=== PATIENT | male | born 1960 | race Caucasian/White ===

== ENCOUNTER 2021-01-08 11:10 | Inpatient (IN) | payer MEDICAID, SELFPAY ==
[~2021-01-08] VITALS: Ht 177.8 cm; Wt 95.3 kg
--- NOTE | 2021-01-08 11:10 | NUR ---
Patient BIBA BLS, transferred to bed 9. RN evaluating the patient at bedside.
[2021-01-08 11:11] VITALS: BP 131/80
--- NOTE | 2021-01-08 11:11 | NUR ---
60Y M BIBA c/c alchohol intoxication. Pt was found by ambulance laying on the ground. Pt reports that he passed out. He admits that he fell and hit his head but did not LOC. Pt reports neuropathy in his legs but is unsure of diabetes dx. Pt has scrapes on bilateral hands and fingers. Poor feet hygiene and sore on feet. Pt c/o epigastric pain 03/10. PMH: denies RX: Denies NKA
--- NOTE | 2021-01-08 11:12 | NUR ---
ERMD evaluating pt at bedside.
[2021-01-08] MEDS ORDERED: DICYCLOMINE HCL LIQUID 20 MG, ALUMINUM HYD/MAG/SIMETHICONE 30 ML, LIDOCAINE VISCOUS 2% ... PO ONE ×3 (11:20)
--- NOTE | 2021-01-08 11:20 | NUR ---
Student RN providing foot bath.
[2021-01-08] MEDS ORDERED: LIDOCAINE VISCOUS 2% 20 ML UDC ONE (11:23)
[2021-01-08] MEDS ORDERED: DICYCLOMINE HCL LIQUID 10 MG/5 ML UDC ONE (11:23)
[2021-01-08] MEDS ORDERED: ALUMINUM HYD/MAG/SIMETHICONE 30 ML UDC ONE (11:23)
--- NOTE | 2021-01-08 11:30 | NUR ---
EKG AT BEDSIDE.
[2021-01-08] MEDS ORDERED: ALBUTEROL 0.083% 2.5 MG/3 ML NEBU INH ONE (13:50)
--- NOTE | 2021-01-08 13:53 | NUR ---
ATTEMPTED TO ROAD TEST PT, PT ALMOST FELL DURING AMBULATION. ERMD MADE AWARE, PT TAKEN BACK TP BED 9. SANDWICH AND JUICE PROVIDED.
--- NOTE | 2021-01-08 13:57 | NUR ---
LAB AT BEDSIDE
--- NOTE | 2021-01-08 13:58 | NUR ---
X-Ray at bedside.
--- NOTE | 2021-01-08 14:06 | NUR ---
RT CALLED FOR INH ELECTRIC SHIPYARD OPERATOR
--- NOTE | 2021-01-08 14:14 | NUR ---
RT AT BEDSIDE
[2021-01-08 14:18] LABS: BASOPHILS # (AUTO) 0.1 K/uL (0.00-0.22); BASOPHILS % (AUTO) 1.4 % (0.0-2.0); HEMATOCRIT 39.8 % (36-52); HEMOGLOBIN 14.2 g/dL (12.0-18.0); LYMPHOCYTES # (AUTO) 1.8 K/uL (2.0-11.5); LYMPHOCYTES % (AUTO) 21.3 % (20.5-51.1); MEAN CORPUSCULAR HEMOGLOBIN 35 pg (27-31); MEAN CORPUSCULAR HGB CONC 36 g/dL (33-37); MEAN CORPUSCULAR VOLUME 97.1 fL (80-94); MONOCYTES # (AUTO) 0.8 K/uL (0.8-1.0); MONOCYTES % (AUTO) 9.5 % (1.7-9.3); NEUTROPHILS # (AUTO) 5.8 K/uL (1.8-7.7); NEUTROPHILS % (AUTO) 67.8 % (42.2-75.2); PLATELET COUNT (AUTO) 203 K/uL (140-450); RED CELL DISTRIBUTION WIDTH 18.6 % (11.6-13.7); WHITE BLOOD COUNT (AUTO) 8.5 K/uL (4.8-10.8)
[2021-01-08 14:33] LABS: ALBUMIN 3.1 g/dL (3.4-5.0); ANION GAP 10.5 (8-16); CARBON DIOXIDE 36.4 mmol/L (21-32); CREATININE 1.1 mg/dL (0.6-1.3); TOTAL BILIRUBIN 1.3 mg/dL (0.0-1.0)
[2021-01-08 14:35] LABS: POTASSIUM 1.9 mmol/L (3.5-5.1)
[2021-01-08] MEDS ORDERED: NACL 0.9% 1,000 ML IV ONE ×2 (14:35→14:45)
[2021-01-08] MEDS ORDERED: POTASSIUM CHL 40 MEQ/ D5-1/2NS 1,000 ML IV ONE (14:35)
[2021-01-08] MEDS ORDERED: FOLIC ACID 1 MG TAB PO ONE (14:40)
[2021-01-08] MEDS ORDERED: POTASSIUM CHLORIDE 10 MEQ TABER PO ONE ×2 (14:40→22:30)
[2021-01-08] MEDS ORDERED: MORPHINE SULFATE 2 MG/ML SYR IVP PRN (14:45)
[2021-01-08] MEDS ORDERED: KCL 20 MEQ/WATER INJ PREMIX 200 ML IV ONE (14:45)
[2021-01-08] MEDS ORDERED: MAG SULF 2000 MG/WATER PREMIX 50 ML IV PRN (14:45)
[2021-01-08] MEDS ORDERED: DOCUSATE SODIUM 100 MG GELCAP PO PRN (14:45)
[2021-01-08] MEDS ORDERED: SODIUM PHOS / POTASSIUM PHOS 1 PKT PDR PO PRN (14:45)
[2021-01-08] MEDS: FOLIC ACID 1 MG TAB PO SCH (14:50)
[2021-01-08] MEDS: NACL 0.9% 1,000 ML IV SCH ×2 (15:08→15:24)
--- NOTE | 2021-01-08 15:30 | NUR ---
PT ASKING FOR SOMETHING FOR HIS "SHAKES" FROM ALOCHOL WITHDRAWL. PRN GIVEN
[2021-01-08] MEDS: THIAMINE 100 MG TAB PO SCH (15:37)
[2021-01-08] MEDS: ONDANSETRON 4 MG/2 ML VIAL IM/IVP PRN ×2 (15:38→19:26)
[2021-01-08] MEDS: LORazepam 2 MG/ML VIAL IM/IVP PRN ×2 (15:38→22:05)
[2021-01-08 15:50] LABS: MAGNESIUM 1.7 mg/dL (1.8-2.4); PHOSPHORUS 2.4 mg/dL (2.5-4.9)
--- NOTE | 2021-01-08 16:10 | NUR ---
REPORT GIVEN TO KELLY RAMSEY VIA PHONE.
--- NOTE | 2021-01-08 16:20 | NUR ---
Patient will be admitted to care of [facility]. Admited to Tele. Will go to room 111A. Belongings list completed. Report to KELLY Lorenz.
[2021-01-08 16:25] VITALS: BP 131/80
--- NOTE | 2021-01-08 16:25 | NUR ---
RECEIVED PATIENT FROM ED NURSE KELLY ABDI. PATIENT BIT DROWSY BUT ALERT AND ORIENTED X3. RESP EVEN AND UNLABORED ON ROOM AIR. DENIED OF PAIN AT THIS TIME. DX ALCOHOL INTOXICATION. PERSONAL CARE PROVIDED BY CNAS. PATIENT ABLE TO FOLLOW COMMANDS AND MAKE NEEDS KNOWN. RAC 20G INFUSING KRIDER. BILATERAL HANDS SWELLING WITH REDNESS NOTED. PLAN OF CARE DISCUSSED, PATIENT VERBALIZED UNDERSTANDING. CALL LIGHT WITHIN REACH. WILL CONTINUE TO MONITOR.
[2021-01-08] MEDS: MULTIVITAMIN/MINERALS 1 TAB PO SCH (17:32)
[2021-01-08] MEDS: chlordiazePOXIDE 25 MG CAP PO SCH (17:33)
--- NOTE | 2021-01-08 17:53 | NUR ---
IV ACCESS TO RAC DISLODGED DURING PERSONAL CARE. WILL MAKE ATTEMPT TO INSERT ANOTHER. Addendum: 01/08/21 at 1927 by Silvia Mcmillan RN IV ACCESS INTACT PER ED NURSE. LUNGS CLEAR, BOWEL SOUNDS PRESENT. MRSA COLLECTED AND SENT TO LAB.
--- NOTE | 2021-01-08 19:15 | NUR ---
RECEIVED BEDSIDE REPORT FROM DAY SHIFT NURSE FOR CONTINUITY OF CARE. PT IS AWAKE AND ALERT, SPEAKING APPROPRIATELY. ON RA WITH BREATHING UNLABORED. PT IS AMBULATORY WITH ASSISTANCE. ST ON TELE MONITORING. SKIN IS WARM AND MOIST. WOUNDS ON THE HANDS BILATERALLY AND RIGHT THIGH. IV IS IN THE RIGTH AC 20 GAUGE RUNNING POTASSIUM AND FLUIDS. PT IS STABLE AT THIS TIME. PLAN OF CARE DISCUSSED. SEIZURE PRECAUTIONS AND FALL PRECAUTIONS IN PLACE.
--- NOTE | 2021-01-08 19:15 | NUR ---
ENDORSED PATIENT TO NIGHT NURSE. PATIENT IN STABLE CONDITION.
--- NOTE | 2021-01-08 19:26 | NUR ---
ZOFRAN WAS GIVEN FOR NAUSEA AND VOMITING. PT IS SPITTING UP CLEAR SECRETIONS AND STATES HE IS FEELING SICK. PT IS ALSO SWEATING AND TEMP WAS TAKEN, IT WAS 99.8 F. COOLING MEASURES WERE PLACED. WILL CONTINUE TO MONITOR.
[2021-01-08 20:00] VITALS: BP 127/68
[2021-01-08 20:39] LABS: ANION GAP 6.1 (8-16); CREATININE 1.2 mg/dL (0.6-1.3)
[2021-01-08 20:45] LABS: POTASSIUM 2.1 mmol/L (3.5-5.1)
--- NOTE | 2021-01-08 21:26 | NUR ---
DR. ALEGRIA WAS NOTIFIED FOR POTASSIUM LEVEL OF 2.1, NA 129, AND CO2 40. DR. ALEGRIA ORDERED 80 MEQ KDUR PO. CALLED PHARMACY AND THEY ASKED ME TO CLARIFY THE HIGH DOSE WITH THE DOCTOR. INFORMED DR. ALEGRIA THAT THE PT RECEIVED KDUR 40 MEQ AT 1458 PO AND KRIDER 40 MEQ IV AT 1523. [address]. ALEGRIA CHANGED THE ORDER TO 40 MEQ KDUR AND SAID THEY WILL RECHECK THE LAB IN THE AM.
[2021-01-08] MEDS: CLINDAMYCIN 600 MG in DEXTROSE 5% 50 ML IV SCH (22:05)
--- NOTE | 2021-01-08 22:34 | NUR ---
PT WAS GIVEN KDUR [address] PO [address] ALEGRIA. POTASSIUM LEVEL IS 2.1. MEDICATION EDUCATION WAS PROVIDED AND PT VERBALIZED UNDERSTANDING.
--- NOTE | 2021-01-08 23:00 | NUR ---
PT STILL HAS NOT VOIDED IN DIAPER OR URINAL. PT STATES HE HAS NOT GONE TO THE BATHROOM SINCE THIS MORNING. BLADDER SCAN WAS USED AND IT SHOWED 825 ML OF URINE. PROMPTED PT TO URINATE AND EDUCATED HIM ON THE IMPORTANCE OF EMPTYING HIS BLADDER TO AVOID INFECTIONS. HE VERBALIZED UNDERSTANDING AND WILL ATTEMPT TO VOID.
[2021-01-09] VITALS: BP 103/67
--- NOTE | 2021-01-09 | NUR ---
PT STILL UNABLE TO VOID. ENCOURAGED PT TO TRY AGAIN AND PT WAS ABLE TO VOID 450 ML OF JIN COLORED URINE IN THE URINAL. URINE WAS SENT TO LAB FOR URINE DRUG SCREEN. PT IS BACK TO SLEEP WITH BLANKETS IN PLACE.
--- NOTE | 2021-01-09 00:18 | NUR ---
PT WAS GIVEN MAGNESIUM RIDER 2 GRAMS IV FOR LOW MAGNESIUM. MAGNESIUM LEVEL WAS 1.7. PRN MED WAS GIVEN PER PROTOCOL. MEDICATION EDUCATION WAS PROVIDED AND PT VERBALIZED UNDERSTANDING.
--- NOTE | 2021-01-09 02:30 | NUR ---
PT IS SLEEPING IN SEMI FOWLERS POSITION. BREATHING IS UNLABORED ON RA. NO DISTRESS OR PAIN NOTED. CHEST RISE AND FALL IS SYMMETRICAL. IV IS PATENT AND INFUSING ORDERED. PT IS STABLE.
[2021-01-09 04:00] VITALS: BP 114/56
--- NOTE | 2021-01-09 04:30 | NUR ---
PT VOIDED AGAIN IN THE URINAL. 600 ML'S WAS EMPTIED FROM THE URINAL. THE URINE WAS JIN COLORED AND CLEAR. NO RESPIRATORY DISTRESS NOTED. PT IS BACK TO SLEEP. IV FLUIDS ARE INFUSING. WILL CONTINUE TO MONITOR.
[2021-01-09] MEDS: CLINDAMYCIN 600 MG in DEXTROSE 5% 50 ML IV SCH ×3 (05:00→21:02)
--- NOTE | 2021-01-09 06:00 | NUR ---
PT WAS CHANGED AND CLEANED BY CELESTE SOTO. A NEW GOWN WAS PLACED ON PT AND NEW LINENS WELL. PT TOLERATED MOVEMENT WELL. NO DISTRESS OR PAIN NOTED. PT IS STABLE.
[2021-01-09 07:07] LABS: BASOPHILS % (AUTO) 0.3 % (0.0-2.0); EOSINOPHILS % (AUTO) 0.3 % (0.0-4.0); HEMATOCRIT 37.2 % (36-52); HEMOGLOBIN 13.1 g/dL (12.0-18.0); LYMPHOCYTES # (AUTO) 0.6 K/uL (2.0-11.5); MEAN CORPUSCULAR HEMOGLOBIN 35 pg (27-31); MEAN CORPUSCULAR HGB CONC 35 g/dL (33-37); MEAN CORPUSCULAR VOLUME 100.1 fL (80-94); MONOCYTES # (AUTO) 0.5 K/uL (0.8-1.0); MONOCYTES % (AUTO) 6.8 % (1.7-9.3); NEUTROPHILS # (AUTO) 6.3 K/uL (1.8-7.7); PLATELET COUNT (AUTO) 157 K/uL (140-450); RED BLOOD CELL COUNT(AUTO) 3.71 MIL/uL (4.20-6.10); RED CELL DISTRIBUTION WIDTH 18.9 % (11.6-13.7); WHITE BLOOD COUNT (AUTO) 7.5 K/uL (4.8-10.8)
[2021-01-09 07:14] LABS: BARBITURATE, URINE NEGATIVE ng/ml (NEG <=200); BENZODIAZEPINE, URINE POSITIVE ng/mL (NEG <=200); CANNABINOID, URINE NEGATIVE ng/mL (NEG <=50); COCAINE, URINE NEGATIVE ng/mL (NEG <=300); OPIATE, URINE NEGATIVE ng/mL (NEG <=2000); PHENCYCLIDINE SCREEN,URINE NEGATIVE ng/mL (NEG <=25)
[2021-01-09 07:19] LABS: ANION GAP 2.8 (8-16)
--- NOTE | 2021-01-09 07:19 | NUR ---
ENDORSED PT TO DAY SHIFT NURSE FOR CONTINUITY OF CARE. PT IS STABLE AT THIS TIME. PLAN OF CARE DISCUSSED.
--- NOTE | 2021-01-09 07:22 | NUR ---
RECEIVED PATIENT FROM NIGHT NURSE. PATIENT IN BED SLEEPING, CHEST NOTED RISING. RESP EVEN AND UNLABORED ON ROOM AIR. NO NOTED DISTRESS AT THIS TIME. LFA 24G INFUSING WELL. HOB ELEVATED. CALL LIGHT WITHIN REACH. WILL CONTINUE TO MONITOR.
[2021-01-09 07:24] LABS: MAGNESIUM 2.4 mg/dL (1.8-2.4); PHOSPHORUS 3.1 mg/dL (2.5-4.9)
[2021-01-09 07:25] LABS: CARBON DIOXIDE 41.4 mmol/L (21-32); POTASSIUM 2.2 mmol/L (3.5-5.1)
[2021-01-09 08:00] VITALS: BP 123/63
[2021-01-09 08:00] LABS: LYMPHOCYTES % (AUTO) 7.6 % (20.5-51.1)
[2021-01-09] MEDS ORDERED: POTASSIUM CHLORIDE 10 MEQ TABER PO SCH ×2 (08:16)
[2021-01-09] MEDS: POTASSIUM CHLORIDE 40 MEQ, LIDOCAINE MPF 1% 25 MG in NACL 0.9% 250 ML IV PRN (09:09)
[2021-01-09] MEDS: PANTOPRAZOLE 40 MG INJ VIAL IVP SCH (09:10)
[2021-01-09] MEDS: chlordiazePOXIDE 25 MG CAP PO SCH ×3 (09:10→17:04)
[2021-01-09] MEDS: MULTIVITAMIN/MINERALS 1 TAB PO SCH (09:10)
[2021-01-09] MEDS: MULTIVITAMIN 1 TAB PO SCH (09:10)
[2021-01-09] MEDS: THIAMINE 100 MG TAB PO SCH (09:10)
[2021-01-09] MEDS: FOLIC ACID 1 MG TAB PO SCH (09:11)
--- NOTE | 2021-01-09 09:26 | NUR ---
PATIENT UP IN BED AWAKE AND ALERT. MORNING ROUTINE MEDICATIONS GIVEN. KDUR AND KRIDER GIVEN PER ORDER. PATIENT TOLERATED WELL. HANDS TREMOR NOTED. DX: ALCOHOL INTOXICATION. FLUIDS ENCOURAGED. PATIENT ABLE TO MAKE NEEDS KNOWN. RESP EVEN AND UNLABORED ON ROOM AIR. DENIED OF PAIN AT THIS TIME. CALL LIGHT WITHIN REACH. WILL CONTINUE TO MONITOR.
[2021-01-09] MEDS: HYDROcodone/APAP 5/325 MG 1 TAB TAB PO PRN ×2 (11:05→21:02)
[2021-01-09 12:00] VITALS: BP 132/77
--- NOTE | 2021-01-09 12:25 | NUR ---
PATIENT IN BED EATING LUNCH. RESP EVEN AND UNLABORED ON ROOM AIR. CONTINUE TO HAVE PRODUCTIVE COUGHS WITH YELLOW PHLEGM. DR ALEGRIA MADE AWARE. PATIENT STATED PAIN IMPROVED WITH NORCO EFFECTIVE. FLUIDS ENCOURAGED. CALL LIGHT WITHIN REACH. WILL CONTINUE TO MONITOR.
[2021-01-09] MEDS ORDERED: ALUMINUM HYD/MAG/SIMETHICONE 30 ML UDC PO SCH (15:14)
[2021-01-09] MEDS ORDERED: LIDOCAINE VISCOUS 2% 20 ML UDC PO SCH (15:15)
[2021-01-09] MEDS ORDERED: DICYCLOMINE 10 MG CAP PO SCH (15:15)
[2021-01-09 15:27] LABS: ANION GAP 1.8 (8-16); CREATININE 1.1 mg/dL (0.6-1.3)
[2021-01-09 15:43] LABS: POTASSIUM 2.8 mmol/L (3.5-5.1)
--- NOTE | 2021-01-09 15:45 | NUR ---
PATIENT IN BED EATING SNACKS. NO NOTED DISTRESS AT THIS TIME. CALL LIGHT WITHIN REACH. WILL CONTINUE TO MONITOR.
[2021-01-09 16:00] VITALS: BP 127/79
[2021-01-09] MEDS ORDERED: KCL 20 MEQ/WATER INJ PREMIX 200 ML IV ONE (16:10)
--- NOTE | 2021-01-09 17:12 | NUR ---
POTASSIUM 2.8, RECEIVED ORDER FROM DR ALEGRIA TO GIVE KRIDER 20 MEQ IV X2. ORDER CARRIED OUT. ROUTINE MEDICATIONS GIVEN. PATIENT TOLERATING WELL. FIRST BAG OF KRIDER GIVEN. WILL CONTINUE TO MONITOR.
--- NOTE | 2021-01-09 19:05 | NUR ---
RECEIVED BEDSIDE REPORT FROM BRAULIO CHAIREZ RN FOR CONTINUITY OF CARE. PT IS AWAKE AND ALERT. A&OX4, SPEAKING APPROPRIATELY. NO RESPIRATORY DISTRESS NOTED ON RA. BREATHING IS UNLABORED, CHEST RISE AND FALL SYMMETRICAL. PT IS ON TELE MONITORING. SKIN IS WARM AND DRY. BLISTERS, REDNESS, AND SWELLING ON HANDS BILATERALLY. WOUND ON THE RIGHT THIGH WELL, BLANCHABLE RED. LEFT HAND IS WRAPPED WITH KERLIX ON SHIFT CHANGE. IV IS IN THE LEFT FOREARM 24 GAUGE RUNNING THE FIRST BAG OF KRIDER 40 MEQ. PLAN OF CARE DISCUSSED. FALL/ STANDARD PRECAUTIONS IN PLACE. CALL LIGHT WITHIN REACH.
[2021-01-09 20:00] VITALS: BP 136/86
--- NOTE | 2021-01-09 20:57 | NUR ---
OVERRIDE POTASSIUM 20 MEQ FROM OMNICELL PYXIS WITH SAIMA, CHEMISTRY FACULTY MEMBER. 4O MEQ POTASSIUM CHLORIDE IV ORDERED. PER BRAULIO CHAIREZ DAY SHIFT NURSE HE ONLY ADMINISTERED 20 MEQ AND DID NOT PULL BOTH BAGS OUT OF THE PYXIS AT THE TIME, ONLY TOOK ONE BAG. 20 MEQ OF POTASSIUM CHLORIDE IS NOW STARTED AND INFUSING ORDERED.
[2021-01-09] MEDS: MELATONIN 3 MG TAB PO PRN (21:02)
--- NOTE | 2021-01-09 21:02 | NUR ---
PT STATES HE HAS PAIN ALL OVER HIS BODY AT A SCALE OF 6/10. PT STATES IT IS AN ACHING PAIN. PT WAS GIVEN NORCO FOR PAIN. PT ALSO SAYS HE NEEDS SOMETHING TO HELP HIM SLEEP BECAUSE HE HAS TROUBLE SLEEPING. PT WAS GIVEN MELATONIN FOR SLEEPLESSNESS. WILL MONITOR PT.
--- NOTE | 2021-01-09 22:00 | NUR ---
PT WAS PLACED ON BEDPAN TO DEFECATE. PT WAS UNABLE TO HAVE A BM AND HE STATES HE WAS ABLE TO PASS GAS. PT STATES HE WILL TRY AGAIN IN A LITTLE WHILE.
--- NOTE | 2021-01-09 22:39 | NUR ---
ROUNDED ON PT. IV FLUIDS ARE INFUSING. IV IS PATENT AND INTACT. NO RESPIRATORY DISTRESS NOTED ON RA. PT IS SITTING UP IN BED EATING A SNACK. PT IS STABLE.
[2021-01-09] MEDS: NACL 0.9% 1,000 ML IV SCH (23:53)
[2021-01-10] VITALS: BP 123/79
--- NOTE | 2021-01-10 00:30 | NUR ---
WOUNDS ON BILATERAL HANDS AND RIGHT HIP WERE CLEANSED WITH NS AND PATTED DRY. BILATERAL HANDS ARE REDDENED AND SWOLLEN. LEFT HAND WOUND WAS LEAKING SEROSANGUINEOUS FLUIDS AND DRY GAUZE WRAP WAS PLACED OVER WOUND. PICTURES WERE TAKEN OF ALL WOUNDS AND PLACED IN THE CHART. PT DENIES ANY PAIN AT THIS TIME.
[2021-01-10] MEDS: ACETAMINOPHEN 325 MG TAB PO PRN ×2 (02:21→11:30)
--- NOTE | 2021-01-10 02:21 | NUR ---
PT IS STATING HE HAS A HEADACHE AND WOULD LIKE TO HAVE TYLENOL TO HELP WITH THE PAIN. PT WAS GIVEN TYLENOL ORDERED FOR MILD PAIN. WILL MONITOR FOR HEADACHE.
[2021-01-10 04:00] VITALS: BP 117/64
--- NOTE | 2021-01-10 04:30 | NUR ---
ROUNDED ON PT. HE IS SLEEPING IN SEMI FOWLERS POSITION. NO DISTRESS NOTED. BREATHING IS UNLABORED ON RA. IV FLUIDS ARE PATENT AND INFUSING ORDERED. WILL CONTINUE TO MONITOR.
[2021-01-10] MEDS: CLINDAMYCIN 600 MG in DEXTROSE 5% 50 ML IV SCH ×3 (05:08→21:49)
[2021-01-10 06:44] LABS: ANION GAP 8.1 (8-16); CARBON DIOXIDE 38.6 mmol/L (21-32); CREATININE 0.9 mg/dL (0.6-1.3)
[2021-01-10 06:47] LABS: BASOPHILS % (AUTO) 0.5 % (0.0-2.0); EOSINOPHILS # (AUTO) 0.1 K/uL (0-0.4); EOSINOPHILS % (AUTO) 2.1 % (0.0-4.0); HEMATOCRIT 34.7 % (36-52); LYMPHOCYTES # (AUTO) 1.3 K/uL (2.0-11.5); MAGNESIUM 1.9 mg/dL (1.8-2.4); MEAN CORPUSCULAR HEMOGLOBIN 35 pg (27-31); MEAN CORPUSCULAR HGB CONC 35 g/dL (33-37); MEAN CORPUSCULAR VOLUME 100.8 fL (80-94); MONOCYTES # (AUTO) 0.8 K/uL (0.8-1.0); NEUTROPHILS # (AUTO) 4.7 K/uL (1.8-7.7); NEUTROPHILS % (AUTO) 67.4 % (42.2-75.2); PHOSPHORUS 2.1 mg/dL (2.5-4.9); PLATELET COUNT (AUTO) 140 K/uL (140-450); RED BLOOD CELL COUNT(AUTO) 3.45 MIL/uL (4.20-6.10); WHITE BLOOD COUNT (AUTO) 6.9 K/uL (4.8-10.8)
[2021-01-10 06:51] LABS: POTASSIUM 2.7 mmol/L (3.5-5.1)
--- NOTE | 2021-01-10 07:05 | NUR ---
ENDORSED PT TO DAY SHIFT NURSE FOR CONTINUITY OF CARE. PT IS AWAKE AND ALERT. STABLE AT THIS TIME. PLAN OF CARE DISCUSSED.
--- NOTE | 2021-01-10 07:05 | NUR ---
CONTACTED DR. JOHNSON TO INFORM HIM OF THE POTASSIUM LEVEL OF 2.7 AND CA 7.8. DOCTOR ORDERED FOR THE PRN 40 MEQ KRIDER WITH LIDOCAINE TO BE ADMINISTERED PLUS AN ADDITIONAL 40 MEQ POTASSIUM PO FOR A TOTAL OF 80 MEQ. WILL ENDORSE TO DAY SHIFT NURSE.
--- NOTE | 2021-01-10 07:20 | NUR ---
PT RECEIVED FROM SEO COORDINATOR NURSE. PT IN BED RESTING . BREATHING IS SYMMETRICAL AND UNLABORED EYES OPEN. NO S/S OF DISTRESS AT THIS TIME. ALL SAFETY MEASURES ARE IN PLACE . CALL LIGHT IS WITHIN REACH. WILL CONTINUE TO MONITOR
[2021-01-10 08:00] VITALS: BP 125/69
[2021-01-10] MEDS ORDERED: POTASSIUM CHLORIDE 10 MEQ TABER PO SCH (08:00)
[2021-01-10] MEDS: FOLIC ACID 1 MG TAB PO SCH (08:50)
[2021-01-10] MEDS: MULTIVITAMIN/MINERALS 1 TAB PO SCH (08:50)
[2021-01-10] MEDS: MULTIVITAMIN 1 TAB PO SCH (08:51)
[2021-01-10] MEDS: chlordiazePOXIDE 25 MG CAP PO SCH ×3 (08:51→17:14)
[2021-01-10] MEDS: THIAMINE 100 MG TAB PO SCH (08:51)
[2021-01-10] MEDS: PANTOPRAZOLE 40 MG INJ VIAL IVP SCH (08:52)
[2021-01-10] MEDS: SODIUM PHOS / POTASSIUM PHOS 1 PKT PDR PO SCH ×3 (08:58→17:14)
[2021-01-10] MEDS: HYDROcodone/APAP 5/325 MG 1 TAB TAB PO PRN ×4 (09:09→23:33)
--- NOTE | 2021-01-10 09:11 | NUR ---
FNS CONSULT RECEIVED FOR WOUNDS/PRESSURE INJURIES NOT APPROPRIATE FOR BLISTERS. PATIENT HAS BEEN SCREENED AND CATEGORIZED MODERATE NUTRITION RISK. PATIENT WILL BE SEEN WITHIN 3-5 DAYS OF ADMISSION. 01/11/21 01/13/[address]
--- NOTE | 2021-01-10 09:13 | NUR ---
MEDICATIONS GIVEN PER MD ORDER. PT EDUCATED AND VERBALIZED UNDERSTANDING.NO S/S OF DISTRESS AT THIS TIME. ALL SAFETY MEASURES ARE IN PLACE . CALL LIGHT IS WITHIN REACH. WILL CONTINUE TO MONITOR
--- NOTE | 2021-01-10 10:50 | NUR ---
DC PLANN[age] YRS OLD HOMELESS PATIENT WAS ADMITTED FROM ER WITH A DX OF HYPONATREMIA, HYPOKALEMIA DHN, AND ALCOHOL INTOXICATION. PT HAS A HX OF ALCOHOLISM AND CHRONIC BACK PAIN , K+ON ADMISSION 1.9 RECEIVED K+PO ,IV AND POTASSIUM PHOSPHATE , K+ LEVEL 2.7 K-RIDER IS INFUSING. CXR IS NEGATIVE, US ABD SHOWED GALLBLADDER SLUDGE AND ECHOGENIC LIVER. DC PLAN FINE ARTIST TO EVALUATE FOR HOMELESSNESS. CM TO FOLLOW Addendum: 01/10/21 at 1114 by Naheed Murry RN DC PLANNING: CALLED JANA SÁNCHEZ [phone] OPT 2 SPOKE WITH FEED ADVISER STATED KRISTIAN IS THE EQUIPMENT PROCESSOR AND TRANSFER ME TO THE VOICE MAIL AND LEFT A MESSAGE FOR KRISTIAN. CM TO FOLLOW Addendum: 01/10/21 at 8479 by Naheed Murry RN DC PLANNING: RECEIVED A CALL FROM [facility] SPOKE WITH KRISTIAN PRESSLEY PT'S CLINICAL . SHE PROVIDED AUTH # [id number] JOHNNY TO FOLLOW. Addendum: 01/11/21 at 1017 by Ivonne Daniel CM ESTER RICHARDS SCHEDULED PATIENT AN APPOINTMENT WITH PCP STACEY CHOWDHURY [phone] ON 01/20/2021 AT 2:[address] [place] [id number] Addendum: 01/11/21 at 1502 by Ivonne Daniel CM ESTER RICHARDS RECEIVED A CALL FROM KELLY ECHEVERRIA PATIENT REFUSES TO DISCHARGE HE STATES THAT HE CAN NOT WALK AND HAS NO WERE TO GO. FINE ARTIST PROVIDED HOMELESS RESOURCES BUT PATIENT STATES HE DOES NOT KNOW WHAT THE NURSE IS TALKING ABOUT. NOTIFIED MY ARTIST MANAGER SHE SPOKE TO THE PATIENT HERSELF. PT EVAL ORDERED FOR PATIENT. Addendum: 01/12/21 at 1002 by Singh HERNANDEZ GEE MET WITH PATIENT AT BEDSIDE WITH PT. SW ENCOURAGED PATIENT TO COOPERATE WITH PT. PATIENT STATED THAT HE WAS UNABLE TO WALK AND COMPLETED EXERCISES WITH PT. IT IS UNDER PT'S RECOMMENDATION THAT PATIENT WILL BENEFIT FROM SNF. Addendum: 01/13/21 at 1019 by Ivonne Daniel CM ESTER FERNANDEZ ORDER FOR SNF FOR PT AND WOUND CARE TO [facility] MG WILL FOLLOW UP WITH JOHNNY TOWNSEND Addendum: 01/13/21 at 1053 by Ivonne Daniel CM ESTER RICHARDS: FOLLOWED UP WITH JOHNNY TOWNSEND FROM [facility]. SHE WILL HAVE HER SNF TEAM WORK ON FINDING PLACEMENT. SHE STATED THAT THIS WILL BE A HARD PLACEMENT AND PATIENT POSSIBLY WILL BE PLACED SOMEWHERE FAR. WILL FOLLOW UP Addendum: 01/13/21 at 1216 by Ivonne Daniel CM ESTER HERRERANER: [place] [address]. [address] NUMBER FOR [phone]. TRANSPORTATION HAS BEEN ARRANGED BY JOHNNY TOWNSEND FROM [facility] FOR 2:00 PM. NOTIFIED KELLY DEAN. Addendum: 01/13/21 at 1330 by Ivonne Daniel CM ESTER RICHARDS: RECEIVED A PHONE CALL FROM JOHNNY TOWNSEND AT [facility] TRANSPORTATION HAS BEEN ARRANGED BY [facility] [phone] BETWEEN 3:30-4:30 PM
[2021-01-10] MEDS: POTASSIUM CHLORIDE 40 MEQ, LIDOCAINE MPF 1% 25 MG in NACL 0.9% 250 ML IV PRN (11:33)
--- NOTE | 2021-01-10 11:45 | NUR ---
PT ASSISTED WITH BED DOBBS. PT TOLERATED WELL.
[2021-01-10 13:00] VITALS: BP 136/78
--- NOTE | 2021-01-10 14:49 | NUR ---
MEDICATIONS GIVEN PER MD ORDER. PT EDUCATED AND VERBALIZED UNDERSTANDING.NO S/S OF DISTRESS AT THIS TIME. ALL SAFETY MEASURES ARE IN PLACE . CALL LIGHT IS WITHIN REACH. WILL CONTINUE TO MONITOR Addendum: 01/10/21 at 1450 by Ania Danielson RN RN pt complains of 03/10 pain
--- NOTE | 2021-01-10 15:40 | NUR ---
SOCIAL WORK NOTE: Patient's Orientation Person Situation Place Time Information Provided By PATIENT Comments SW MET PATIENT AT BEDSIDE TO COMPLETE ASSESSMENT. PATIENT STATED THAT HE IS NOW HOMELESS. PATIENT ACCEPTED HOMELESS RESOURCES BUT REFUSED ROOM AND BOARD RESOURCES. PATIENT STATED THAT HE DOES NOT LIKE RULES AND LIKES TO LIVE HE PLEASES. Agricultural Equipment Mechanic, Realtionship and Phone Number RENA SHERIDAN MOTHER [phone] LINNEA CHAVIRA SISTER [phone] Healthcare Power of Front Desk Receptionist No Does Patient Have a POLST No Identifying Problems Homelessness/Housing Is A Social Work Consult Needed No Mandate Report Filed No Explanation Of Identifying Problems PATIENT IS A 60-YEAR-OLD CHANDAN DMITTED FOR HYPONATREMIA AND HYPOKALEMIA. PATIENT HAS PMHX OF ASTHMA, CARDIAC DISORDERS, DIABETES, HYPERTENSION, AND SEIZURES. Admitted From HOMELESS Pre-Admission Level Of Functioning Status Independent/Ambulatory Prior Resources/Services Used In Last 12 Months Homeless Resources Prior Resources/Service Comments PATIENT ACCEPTED HOMELESS RESOURCES BUT STATED HE WOULD COORDINATE LIVING ARRANGEMENTS HIMSELF. Prior DME No Prior DME Used Living Situation Homeless Patient Had Caregiver No Home Support No Caregiver Issues Financial Issues No Known Financial Issue Referral To The Financial Counselor Needed No Factors/Needs Penitentiary/Homeless Pt/Rep Participated In Discharge Plan Yes Patient/Family Agress With Discharge Plan Yes Discharge Plan Comments TENTATIVE DISCHARGE PLAN IS FOR PATIENT TO COORDINATE LIVING ARRANGEMENTS AFTER DISCHARGE. DC Plan Status Initiated
[2021-01-10 16:00] VITALS: BP 134/89
[2021-01-10] MEDS: NACL 0.9% 1,000 ML IV SCH (17:15)
--- NOTE | 2021-01-10 17:30 | NUR ---
PT IN BED NO S/S OF DISTRESS AT THIS TIME. WILL CONTINUE TO MONITOR.
--- NOTE | 2021-01-10 19:10 | NUR ---
RECEIVED PATIENT FROM AM SHIFT NURSE FOR CONTINUITY OF CARE. ALERT AND ABLE TO MAKE NEEDS KNOWN. RESPIRATIONS EVEN, UNLABORED. NO S/S RESPIRATORY DISTRESS. NO C/O PAIN. NO S/S ACUTE DISTRESS. SKIN WARM, DRY. BILATERAL HAND CELLULITIS NOTED. IV SITE TO LEFT FOREARM 24G PATENT/INTACT, INFUSING FLUIDS WELL. ABDOMEN SOFT, NONTENDER, NONDISTENDED. BOWEL SOUNDS ACTIVE x4 QUADRANTS. PATIENT IS CONTINENT OF B/B. PLAN OF CARE DISCUSSED. SAFETY PRECAUTIONS IN PLACE. CALL LIGHT WITHIN REACH AT ALL TIMES.
--- NOTE | 2021-01-10 19:10 | NUR ---
PT ENDORSED TO COIN MACHINE SUPERVISOR RN. PT COMPLAINED OF 6/10 PAIN ON LEFT ARM. PRN MEDICATION GIVEN.
[2021-01-10 20:00] VITALS: BP 118/83
--- NOTE | 2021-01-10 21:07 | NUR ---
PATIENT ACCIDENTLY REMOVED IV FROM LEFT FOREARM. CANNULA INTACT. NEW IV STARTED TO RIGHT FOREARM 22G. NO DISCOMFORT FROM PATIENT.
[2021-01-10] MEDS: LORazepam 2 MG/ML VIAL IM/IVP PRN (21:47)
[2021-01-10] MEDS: MELATONIN 3 MG TAB PO PRN (21:48)
--- NOTE | 2021-01-10 21:49 | NUR ---
PATIENT ACCIDENTLY REMOVED IV FROM RIGHT FOREARM. CANNULA INTACT. NEW IV STARTED TO RIGHT WRIST 22G. NO DISCOMFORT FROM PATIENT.
--- NOTE | 2021-01-10 23:00 | NUR ---
PROVIDED EDUCATION REGARDING NEED FOR IV HYDRATION AND MEDICATION. PATIENT VERBALIZED UNDERSTANDING BUT NEEDS REINFORCEMENT
[2021-01-11] VITALS: BP 137/77
--- NOTE | 2021-01-11 01:00 | NUR ---
MADE ROUNDS. PATIENT IS ASLEEP. NO S/S ACUTE DISTRESS. SAFETY PRECAUTIONS IN PLACE. CALL LIGHT WITHIN REACH AT ALL TIMES.
--- NOTE | 2021-01-11 03:00 | NUR ---
PATIENT IS ASLEEP. NO S/S ACUTE DISTRESS. SAFETY PRECAUTIONS IN PLACE. CALL LIGHT WITHIN REACH AT ALL TIMES.
[2021-01-11 04:00] VITALS: BP 132/79
[2021-01-11] MEDS: CLINDAMYCIN 600 MG in DEXTROSE 5% 50 ML IV SCH ×3 (04:46→21:39)
--- NOTE | 2021-01-11 05:30 | NUR ---
DUE MEDS GIVEN. PATIENT IS ASLEEP. NO S/S ACUTE DISTRESS. SAFETY PRECAUTIONS IN PLACE. CALL LIGHT WITHIN REACH AT ALL TIMES.
[2021-01-11 06:07] LABS: HEPATITIS A ANTIBODY IGM Negative (Negative); HEPATITIS B CORE AB TOTAL Negative (Negative); HEPATITIS B SURFACE ANTIBODY Non Reactive (.); HEPATITIS B SURFACE ANTIGEN Negative (Negative)
[2021-01-11 06:54] LABS: BASOPHILS # (AUTO) 0.1 K/uL (0.00-0.22); BASOPHILS % (AUTO) 0.6 % (0.0-2.0); EOSINOPHILS # (AUTO) 0.2 K/uL (0-0.4); HEMATOCRIT 35.4 % (36-52); HEMOGLOBIN 12.5 g/dL (12.0-18.0); LYMPHOCYTES # (AUTO) 1.3 K/uL (2.0-11.5); LYMPHOCYTES % (AUTO) 15.9 % (20.5-51.1); MEAN CORPUSCULAR HEMOGLOBIN 36 pg (27-31); MEAN CORPUSCULAR HGB CONC 35 g/dL (33-37); MEAN CORPUSCULAR VOLUME 100.5 fL (80-94); MONOCYTES # (AUTO) 1.1 K/uL (0.8-1.0); NEUTROPHILS # (AUTO) 5.7 K/uL (1.8-7.7); NEUTROPHILS % (AUTO) 68.5 % (42.2-75.2); PLATELET COUNT (AUTO) 138 K/uL (140-450); RED BLOOD CELL COUNT(AUTO) 3.52 MIL/uL (4.20-6.10); RED CELL DISTRIBUTION WIDTH 18.9 % (11.6-13.7); WHITE BLOOD COUNT (AUTO) 8.3 K/uL (4.8-10.8)
[2021-01-11 06:57] LABS: CARBON DIOXIDE 31.5 mmol/L (21-32); CREATININE 0.8 mg/dL (0.6-1.3); POTASSIUM 3.5 mmol/L (3.5-5.1)
--- NOTE | 2021-01-11 07:08 | NUR ---
ENDORSED PATIENT TO AM SHIFT NURSE FOR CONTINUITY OF CARE.
--- NOTE | 2021-01-11 07:13 | NUR ---
RECEIVED PT FORM FARM MACHINERY ENGINE MECHANIC NURSE, JAMES, PT IS AWAKE AND LYING ON THE BED WITH SIDE RAILS UP AND CALL LIGHT WITHIN REACH, IV LINE NOTED ON THE RT WRIST G. 22 WITH NS INFUSING AT 60ML/HR, PT IS ON RA, AOX4, DENIES PAIN, WITH B/L ARM SWELLING, NO SIGN OF DISTRESS NOTED AND WILL CONTINUE TO BE MONITORED.
[2021-01-11 08:00] VITALS: BP 120/81
[2021-01-11] MEDS: PANTOPRAZOLE 40 MG INJ VIAL IVP SCH (08:44)
[2021-01-11] MEDS: chlordiazePOXIDE 25 MG CAP PO SCH ×3 (08:45→17:25)
[2021-01-11] MEDS: FOLIC ACID 1 MG TAB PO SCH (08:45)
[2021-01-11] MEDS: SODIUM PHOS / POTASSIUM PHOS 1 PKT PDR PO SCH ×3 (08:45→17:25)
--- NOTE | 2021-01-11 08:45 | NUR ---
PT WAS GIVEN THE SCHEDULED AM MEDICATIONS PARAMETER CHECKED AND WILL CONTINUE TO BE MONITORED.
[2021-01-11] MEDS: MULTIVITAMIN/MINERALS 1 TAB PO SCH (08:46)
[2021-01-11] MEDS: MULTIVITAMIN 1 TAB PO SCH (08:46)
[2021-01-11] MEDS: THIAMINE 100 MG TAB PO SCH (08:46)
--- NOTE | 2021-01-11 08:55 | NUR ---
DR. JOHNSON CAME AND TALKED TO THE PT AND VERBALIZED PLAN OF CARE, PT VERBALIZED UNDERSTANDING,
[2021-01-11] MEDS ORDERED: CLIN300C2 PO (09:05)
[2021-01-11] MEDS ORDERED: LEVO750T51 PO (09:05)
[2021-01-11] MEDS ORDERED: MULT-2253 PO (09:07)
[2021-01-11] MEDS ORDERED: LIB25 PO (09:07)
[2021-01-11] MEDS ORDERED: OMEP20TC12 PO (09:07)
[2021-01-11] MEDS: NACL 0.9% 1,000 ML IV SCH (11:00)
[2021-01-11 12:00] VITALS: BP 126/80
--- NOTE | 2021-01-11 14:03 | NUR ---
PT WAS GIVEN THE SCHEDULED IVPB MEDICATION NOW, MILL HOUSE SUPERVISOR TALKING TO PT NOW REGARDING RESOURCES AND PT VERBALIZING THAT HE NEEDS HELP WITH WALKING. WILL INFORM DR. JOHNSON OF THE PT'S CONCERN.
--- NOTE | 2021-01-11 14:38 | NUR ---
WOUND CARE EVALUATION NOTE: WOUND ASSESSMENT DONE WITH THIS 60 Y/O MALE PT. PT. IS AAX4 WOUND CARE TEACHING DONE ,PT. VERBALIZES UNDERSTANDING. POC DISCUSSED WITH PRIMARY RN AND MAY DISCHARGE SUPPLIES WITH PT. -RIGHT INDEX FINGER CELLULITIS PARTIAL THICKNESS SKIN LOSS 2X1CM SUPERFICIAL DEPTH, WOUND BED LIGHT BROWN SLOUGH TISSUE MOIST NO ODOR, ORION WOUND SKIN INTACT. LEFT HAND ERYTHEMA, SWELLING PAIN 0/10 -LEFT DORSAL HAND CELLULITIS PARTIAL THICKNESS SKIN LOSS 3X3.5CM SUPERFICIAL DEPTH, WOUND BED MOIST NO ODOR, ORION WOUND SKIN INTACT. LEFT HAND ERYTHEMA, SWELLING PAIN 2/10 -RIGHT HIP PARTIAL THICKNESS SKIN LOSS 5X3.5CM SUPERFICIAL DEPTH, WOUND BED MOIST NO ODOR, ORION WOUND SKIN INTACT. -LEFT HALLUX DIABETIC ULCER 1X1CM BROWN DRY SCAB, HYPERKERATOSIS BORDER, ORION WOUND SKIN INTACT. RECOMMENDATIONS -CLEANSE RIGHT HIP, RIGHT FINGER AND LEFT HAND WOUNDS WITH NS, PAT DRY, APPLY XEROFORM DRESSING, COVER WITH DRY DRESSING CHANGE 3X/WEEK ON T-TH-SAT AND PRN IF SOILING -PAINT LEFT HALLUX WITH BETADINE SOLUTION BID AND ENDY
[2021-01-11 16:00] VITALS: BP 130/82
--- NOTE | 2021-01-11 16:02 | NUR ---
ULTRASOUND VENOUS BILATERAL LOWER EXTREMITIES WAS FINISHED NOW.
--- NOTE | 2021-01-11 17:25 | NUR ---
PT WAS GIVEN THE SCHEDULED ORAL MEDICATIONS NOW. WILL MONITOR PT.
--- NOTE | 2021-01-11 19:15 | NUR ---
ENDORSED PT TO DIESEL SERVICE JOURNEYMAN NURSEGAURANG, FOR CONTINUITY OF CARE.
--- NOTE | 2021-01-11 19:56 | NUR ---
PATIENT WAS RECEIVED IN BED ALERT AND COHERENT.
[2021-01-11 20:00] VITALS: BP 113/67
--- NOTE | 2021-01-11 21:05 | NUR ---
RN MADE ROUND TO GIVE DU MEDICATIONS, TOLERATED BY PATIENT WELL.
--- NOTE | 2021-01-11 23:15 | NUR ---
PATIENT C/O ABD PAIN, MORPHINE 1 MG WAS GIVEN IVP
[2021-01-12] VITALS: BP 128/86
--- NOTE | 2021-01-12 | NUR ---
PATIENT STILL COMPLAINS OF ABD PAIN, NAUSEA AND INABILITY TO SLEEP, NORCO 5/325 MG, MELATONIN 3 MG, AND ZOFRAN 4 MG WERE GIVEN PO AND IVP.
[2021-01-12] MEDS ORDERED: GAUZE TP SCH ×2 (01:00→13:00)
[2021-01-12] MEDS: ONDANSETRON 4 MG/2 ML VIAL IM/IVP PRN (01:43)
[2021-01-12] MEDS: HYDROcodone/APAP 5/325 MG 1 TAB TAB PO PRN ×2 (01:44→21:04)
[2021-01-12] MEDS: MELATONIN 3 MG TAB PO PRN (01:44)
[2021-01-12] MEDS: NACL 0.9% 1,000 ML IV SCH ×2 (02:05→18:45)
--- NOTE | 2021-01-12 02:19 | NUR ---
RN MADE ROUND NOW TO REASSESS THE PATIENT, ASLEEP
[2021-01-12 04:00] VITALS: BP 144/80
[2021-01-12] MEDS: CLINDAMYCIN 600 MG in DEXTROSE 5% 50 ML IV SCH ×3 (05:57→21:15)
[2021-01-12 06:30] LABS: ANION GAP 9.5 (8-16); CARBON DIOXIDE 29.7 mmol/L (21-32); CREATININE 0.8 mg/dL (0.6-1.3); POTASSIUM 3.2 mmol/L (3.5-5.1)
[2021-01-12 06:33] LABS: BASOPHILS # (AUTO) 0.1 K/uL (0.00-0.22); EOSINOPHILS # (AUTO) 0.2 K/uL (0-0.4); EOSINOPHILS % (AUTO) 2.8 % (0.0-4.0); HEMATOCRIT 34.7 % (36-52); HEMOGLOBIN 12.2 g/dL (12.0-18.0); LYMPHOCYTES # (AUTO) 1.4 K/uL (2.0-11.5); LYMPHOCYTES % (AUTO) 24.7 % (20.5-51.1); MEAN CORPUSCULAR HEMOGLOBIN 35 pg (27-31); MEAN CORPUSCULAR HGB CONC 35 g/dL (33-37); MEAN CORPUSCULAR VOLUME 100.1 fL (80-94); MONOCYTES # (AUTO) 0.8 K/uL (0.8-1.0); MONOCYTES % (AUTO) 14.4 % (1.7-9.3); NEUTROPHILS # (AUTO) 3.3 K/uL (1.8-7.7); NEUTROPHILS % (AUTO) 57.1 % (42.2-75.2); PLATELET COUNT (AUTO) 151 K/uL (140-450); RED BLOOD CELL COUNT(AUTO) 3.47 MIL/uL (4.20-6.10); WHITE BLOOD COUNT (AUTO) 5.7 K/uL (4.8-10.8)
--- NOTE | 2021-01-12 07:28 | NUR ---
RECEIVED REPORT FROM SCHOOL SECRETARY RN FOR CONTINUITY OF CARE. PATIENT AWAKE, SITTING IN BED. AAOX4, ABLE TO MAKE NEEDS KNOWN. RESPIRATORY EVEN UNLABORED ON ROOM AIR. RESIDUAL WEAKNESS BLE, PENDING PT EVAL. URINARY AT BEDSIDE. PLAN OF CARE DISCUSSED. SAFETY MEASURES IN PLACE, WILL CONTINUE TO MONITOR.
--- NOTE | 2021-01-12 07:37 | NUR ---
MORNING MEDS GIVEN. ALL REPORTS AND RECOMMENDATIONS GIVEN, ENDORSED TO IN COMING RN.
[2021-01-12 08:00] VITALS: BP 120/76
[2021-01-12] MEDS: PANTOPRAZOLE 40 MG INJ VIAL IVP SCH (08:41)
[2021-01-12] MEDS: MULTIVITAMIN 1 TAB PO SCH (08:42)
[2021-01-12] MEDS: FOLIC ACID 1 MG TAB PO SCH (08:42)
[2021-01-12] MEDS: chlordiazePOXIDE 25 MG CAP PO SCH ×3 (08:42→17:27)
--- NOTE | 2021-01-12 08:42 | NUR ---
SCHEDULED MEDICATIONS GIVEN, EDUCATION PROVIDED, SAFETY MEASURES IN PLACE, WILL CONTINUE TO MONITOR.
[2021-01-12] MEDS: THIAMINE 100 MG TAB PO SCH (08:43)
[2021-01-12] MEDS: MULTIVITAMIN/MINERALS 1 TAB PO SCH (08:43)
--- NOTE | 2021-01-12 08:52 | NUR ---
DR. YU CHECKING PATIENT AT BEDSIDE.
[2021-01-12] MEDS: POTASSIUM CHLORIDE 40 MEQ, LIDOCAINE MPF 1% 25 MG in NACL 0.9% 250 ML IV PRN (09:43)
--- NOTE | 2021-01-12 09:43 | NUR ---
K RIDER WITH LIDOCAINE GIVEN FOR K+ 3.2.
[2021-01-12 13:00] VITALS: BP 131/80
--- NOTE | 2021-01-12 13:50 | NUR ---
WOUND CARE PERFORMED. DRESSING CHANGED AT RIGHT HIP. PATIENT TOLERATED WELL.
[2021-01-12 16:00] VITALS: BP 116/83
--- NOTE | 2021-01-12 17:02 | NUR ---
IV ON THE RIGHT WRIST WAS ACCIDENTLY PULLED OUT. START NEW IV ON THE RIGHT FOREARM WITH 22G WITH GOOD BLOOD RETURN AND EASILY TO FLUSH WITH NS. PATIENT TOLERATED WELL.
--- NOTE | 2021-01-12 19:25 | NUR ---
ENDORSED PATIENT TO QUALITY CONTROL SCIENTIST RN FOR CONTINUITY OF CARE. PATIENT IN STABLE CONDITION.
--- NOTE | 2021-01-12 19:26 | NUR ---
RECD. RESTING IN BED, AWAKE, A/OX4. RESPIRATION EVEN AND UNLABORED. IV OF NS AT 60 ML/HR INFUSING, RIGHT FOREARM G22. WOUNDS ON BILATERAL HANDS AND RIGHT HIP COVERED WITH DRESSING DRY AND INTACT. USES THE URINAL AND BEDPAN FOR BM, STATED HE IS UNABLE TO WALK YET BECAUSE WHEN HE STAND BOTH LEGS AND BILATERAL ARE WOBBLY AND BOTH HIS FEET ARE NUMB AND HE INFORMED MD ABOUT IT. SAFETY MEASURES ENFORCED. INSTRUCTED TO CALL NURSE WHEN NEEDING HELP. MEDICATIONS AND CARE FOR THE SHIFT DISCUSSED. VERBALIZED UNDERSTANDING. DENIES PAIN 0/10.
--- NOTE | 2021-01-12 19:30 | NUR ---
RECEIVED BEDSIDE REPORT FROM DAY SHIFT NURSE, AURELIO MENDOZA. PLAN OF CARE DISCUSSED WITH MARY RIBERA LVN.
[2021-01-12 20:00] VITALS: BP 113/70
--- NOTE | 2021-01-12 21:02 | NUR ---
SCHEDULED MEDICATION AND SNACK GIVEN.
[2021-01-12] MEDS ORDERED: guaiFENesin DM 200/20 MG-10 ML 10 ML UDC PO PRN (22:55)
--- NOTE | 2021-01-12 23:08 | NUR ---
WITH ON AND OFF PRODUCTIVE COUGH, VERBALIZED HE COUGHED OUT GREENISH PHLEGM, MEDICATED WITH ROBITUSSIN DM PER MD ORDER.
--- NOTE | 2021-01-13 | NUR ---
DECREASED COUGHING NOTED. RESTING COMFORTABLY IN BED.
--- NOTE | 2021-01-13 02:00 | NUR ---
SLEEPING COMFORTABLY IN BED.
[2021-01-13 04:00] VITALS: BP 123/77
--- NOTE | 2021-01-13 04:00 | NUR ---
ON HIS RIGHT SIDE, COMFORTABLE IN BED, STILL SLEEPING.
[2021-01-13] MEDS: CLINDAMYCIN 600 MG in DEXTROSE 5% 50 ML IV SCH ×2 (04:26→12:34)
--- NOTE | 2021-01-13 06:00 | NUR ---
STILL SLEEPING COMFORTABLY IN BED. RESPIRATION EVEN AND UNLABORED.
[2021-01-13 06:37] LABS: BASOPHILS # (AUTO) 0.1 K/uL (0.00-0.22); BASOPHILS % (AUTO) 1.5 % (0.0-2.0); EOSINOPHILS # (AUTO) 0.2 K/uL (0-0.4); EOSINOPHILS % (AUTO) 4.3 % (0.0-4.0); HEMATOCRIT 34.2 % (36-52); LYMPHOCYTES # (AUTO) 1.4 K/uL (2.0-11.5); LYMPHOCYTES % (AUTO) 28.1 % (20.5-51.1); MEAN CORPUSCULAR HEMOGLOBIN 35 pg (27-31); MEAN CORPUSCULAR HGB CONC 35 g/dL (33-37); MONOCYTES # (AUTO) 0.7 K/uL (0.8-1.0); MONOCYTES % (AUTO) 12.8 % (1.7-9.3); NEUTROPHILS # (AUTO) 2.7 K/uL (1.8-7.7); NEUTROPHILS % (AUTO) 53.3 % (42.2-75.2); PLATELET COUNT (AUTO) 225 K/uL (140-450); RED BLOOD CELL COUNT(AUTO) 3.39 MIL/uL (4.20-6.10); RED CELL DISTRIBUTION WIDTH 19.9 % (11.6-13.7); WHITE BLOOD COUNT (AUTO) 5.1 K/uL (4.8-10.8)
[2021-01-13] MEDS: NACL 0.9% 1,000 ML IV SCH ×2 (07:00→12:20)
[2021-01-13 07:12] LABS: ANION GAP 8.7 (8-16); CARBON DIOXIDE 29.9 mmol/L (21-32); CREATININE 0.9 mg/dL (0.6-1.3); POTASSIUM 3.6 mmol/L (3.5-5.1)
--- NOTE | 2021-01-13 07:20 | NUR ---
ENDORSED TO AM SHIFT NURSE FOR CONTINUITY OF CARE.
--- NOTE | 2021-01-13 07:21 | NUR ---
RECEIVED ENDORSEMENT AT THIS TIME PT IS RESTING IN BED LEFT LATERAL SIDE WITH EYES CLOSED RESPIRATION EVEN AND UNLABORED. POC DISCUSSED AND WILL CONTINUE.
[2021-01-13 08:00] VITALS: BP 120/69
[2021-01-13] MEDS: THIAMINE 100 MG TAB PO SCH (08:40)
[2021-01-13] MEDS: PANTOPRAZOLE 40 MG INJ VIAL IVP SCH (08:40)
[2021-01-13] MEDS: MULTIVITAMIN/MINERALS 1 TAB PO SCH (08:40)
[2021-01-13] MEDS: FOLIC ACID 1 MG TAB PO SCH (08:40)
[2021-01-13] MEDS: MULTIVITAMIN 1 TAB PO SCH (08:40)
[2021-01-13] MEDS: chlordiazePOXIDE 25 MG CAP PO SCH ×3 (08:40→17:09)
--- NOTE | 2021-01-13 08:40 | NUR ---
SCHEDULED MEDICATION GIVEN TOLERATED WELL. DENIES ANY DISTRESS AT THIS TIME. PT EATING BREAKFAST AAOX4 COMMUNICATES EFFECTIVELY. TREMOR TO UPPER EXTREMITIES. REPORTS WEAKNESS. PT HAS IV ACCESS TO RIGHT FA THAT IS INTACT AND PATENT RECEIVING IVF. LUNGS SOUNDS CLEAR, ABD IS SOFT AND NONTENDER WITH ACTIVE BS. WOUNDS ON HANDS CLEAN DRY ALL NEEDS MET. SAFETY MEASURES IN PLACE.
[2021-01-13 10:17] LABS: MAGNESIUM 1.9 mg/dL (1.8-2.4); PHOSPHORUS 3.8 mg/dL (2.5-4.9)
--- NOTE | 2021-01-13 10:32 | NUR ---
WORKING WITH PT AT THIS TIME ALL NEEDS MET.
--- NOTE | 2021-01-13 12:35 | NUR ---
SCHEDULED MEDICATION GIVEN TOLERATED WELL. ALL NEEDS MET.
[2021-01-13 13:30] VITALS: BP 120/69
--- NOTE | 2021-01-13 14:07 | NUR ---
01/13/21 RD INITIAL ASSESSMENT COMPLETED PLEASE REFER TO NUTRITION ASSESSMENT UNDER CARE ACTIVITY FOR ESTIMATED NUTRITIONAL NEEDS. 1. CONTINUE CARDIAC DIET TOLERATED 2. CONTINUE MULTIVITAMIN/VITAMIN C FOR WOUND HEALING 3. RD TO FOLLOW-UP 3-5 DAYS, MODERATE RISK ABI HILLIARD, RD
--- NOTE | 2021-01-13 14:31 | NUR ---
DISCHARGE INSTRUCTIONS EXPLAINED. PT VERBALIZED UNDERSTANDING. PT BEING TRANSFERRED TO [facility] REPORT GIVEN TO ARNOLDO SHERIDAN POC DISCUSSED.
[2021-01-13] MEDS: ACETAMINOPHEN 325 MG TAB PO PRN (15:42)
--- NOTE | 2021-01-13 15:43 | NUR ---
PATIENT COMPLAINS OF A HEADACHE. TYLENOL GIVEN AT THIS TIME. WILL CONTINUE TO MONITOR.
[2021-01-13 16:00] VITALS: BP 113/73
--- NOTE | 2021-01-13 16:35 | NUR ---
SCHEDULED MEDICATION GIVEN TOLERATED WELL. DENIES ANY DISTRESS. 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
--- NOTE | 2021-01-13 18:50 | NUR ---
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
--- NOTE | 2021-01-13 19:10 | NUR ---
RECEIVED PT IN STABLE CONDITION FROM AM NURSE. PT IS AWAKE,ALERT AND ORIENTED X4. WITH NO /CO ANY DISCOMFORT NOR PAIN NOTED. NO MORE IV ACCESS. FOR DC TO [facility]. ALL DC PAPERS READY. ALL BELONGINGS WITH PT. WILL BE WAITING FOR [facility] 1 TRANSPORT TO [place] ANYTIME.
--- NOTE | 2021-01-13 19:40 | NUR ---
MEDIC 1 TRANSPORT HERE. PICKED UP PT AFTER REPORT GIVEN. DISCHARGE POCKET GIVEN TO TRANSPORTER. PT DC IN STABLE CONDITION WITH ALL HIS PERSONAL BELONGINGS.
== END 2021-01-13 19:40 | DRG 383 ==
LOC: MED 11:10 → MTU 14:42
PROVIDERS: ADMIT Hospitalist; ATTEND Hospitalist
DX: L03.113 Cellulitis of right upper limb (principal); G92 Toxic encephalopathy; E44.1 Mild protein-calorie malnutrition; E87.1 Hypo-osmolality and hyponatremia; L03.114 Cellulitis of left upper limb; F10.129 Alcohol abuse with intoxication, unspecified; E87.6 Hypokalemia; R73.9 Hyperglycemia, unspecified; G89.29 Other chronic pain; R74.01 Elevation of levels of liver transaminase levels; Z68.30 Body mass index [BMI] 30.0-30.9, adult; K82.4 Cholesterolosis of gallbladder; K76.89 Other specified diseases of liver; Z59.0 Homelessness; L03.116 Cellulitis of left lower limb; F17.210 Nicotine dependence, cigarettes, uncomplicated; Z83.3 Family history of diabetes mellitus
CPT/HCPCS: 36415; 71045; 76705; 80048; 80053; 80305; 83036; 83735; 84100; 84484; 85025; 86704; 86706; 86708; 86709; 86803; 87081; 87340; 93005; 93970; 94640; 97110; 97112; 97116; 97163-GP; 97530; 99285; C9113; G0482; J1644; J2001; J2060; J2270; J2405; J3475; J3480; J3490; J7030; J7060; J7613

== ENCOUNTER 2021-05-24 15:30 | Emergency (ER) | payer MEDICAID, SELFPAY ==
[~2021-05-24] VITALS: Ht 180.3 cm; Wt 77.1 kg
[~2021-05-24 15:30] MED LIST: CLIN300C2 PO; LEVO750T51 PO; LIB25 PO; MULT-2253 PO; OMEP-278 PO
[2021-05-24 15:40] VITALS: BP 134/48
[2021-05-24] MEDS ORDERED: ASPIRIN 325 MG TAB PO ONE (15:50)
--- NOTE | 2021-05-24 16:04 | NUR ---
LAB BEDSIDE WITH PT
--- NOTE | 2021-05-24 16:20 | NUR ---
Patient ambulated from ER bed 12 to ER bed 7 for closer monitoring. Vlad subramanian at bedside.
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
[2021-05-24 16:39] LABS: BASOPHILS # (AUTO) 0.1 K/uL (0.00-0.22); EOSINOPHILS % (AUTO) 0.7 % (0.0-4.0); HEMATOCRIT 40.7 % (36-52); HEMOGLOBIN 13.3 g/dL (12.0-18.0); LYMPHOCYTES # (AUTO) 1.3 K/uL (2.0-11.5); LYMPHOCYTES % (AUTO) 29.6 % (20.5-51.1); MEAN CORPUSCULAR HEMOGLOBIN 30 pg (27-31); MEAN CORPUSCULAR HGB CONC 33 g/dL (33-37); MEAN CORPUSCULAR VOLUME 92.5 fL (80-94); MONOCYTES # (AUTO) 0.4 K/uL (0.8-1.0); MONOCYTES % (AUTO) 9.3 % (1.7-9.3); NEUTROPHILS # (AUTO) 2.6 K/uL (1.8-7.7); NEUTROPHILS % (AUTO) 58.4 % (42.2-75.2); PLATELET COUNT (AUTO) 402 K/uL (140-450); RED CELL DISTRIBUTION WIDTH 16.3 % (11.6-13.7); WHITE BLOOD COUNT (AUTO) 4.5 K/uL (4.8-10.8)
--- NOTE | 2021-05-24 16:42 | NUR ---
XRAY BEDSIDE WITH PT
--- NOTE | 2021-05-24 16:55 | NUR ---
PT RESTING WITH EYES CLOSED, BREATHING EVEN AND UNLABORED. NO DISTRESS NOTED AT THIS TIME
[2021-05-24 16:56] LABS: ALBUMIN 3.3 g/dL (3.4-5.0); ANION GAP 13.1 (8-16); CARBON DIOXIDE 27.5 mmol/L (21-32); CREATININE 1.1 mg/dL (0.6-1.3); POTASSIUM 3.6 mmol/L (3.5-5.1); TOTAL BILIRUBIN 0.2 mg/dL (0.0-1.0)
--- NOTE | 2021-05-24 17:15 | NUR ---
PT AGITATED, STATES THAT HE DEMANDS A SANDWITCH. PT INFORMED WE CANNOT GIVE FOOD UNTIL ERMD STATES IS OK DUE TO RESULTS
--- NOTE | 2021-05-24 19:14 | NUR ---
REPORT GIVEN TO CARITO MENDOZA, TRANSFER OF CARE AT THIS TIME
--- NOTE | 2021-05-24 19:14 | NUR ---
REPORT RECEIVED FROM KELLY SOTO FOR CONTINUATION OF PATIENT CARE AT THIS TIME.
--- NOTE | 2021-05-24 19:20 | NUR ---
PATIENT LAYING SUPINE IN BED LOCKED IN LOWEST POSITION. PATIENT HAS EYES CLOSED, BREATHING EVEN AND UNLABORED. NAD NOTED, WILL CONTINUE TO MONITOR.
--- NOTE | 2021-05-24 21:15 | NUR ---
PATIENT LAYING IN BED W EYES CLOSED AND A BLANKET, R LATERAL POSITION, X1 SIDERAIL UP. BREATHING EVEN AND UNLABORED. NAD NOTED, WILL CONTINUE TO MONITOR.
[2021-05-24 21:42] VITALS: BP 129/83
--- NOTE | 2021-05-24 21:42 | NUR ---
Patient discharged with v/s stable. Written and verbal after care instructions given and explained. Patient verbalized understanding. Ambulatory with steady gait. All questions addressed prior to discharge. Advised to follow up with PMD.
--- NOTE | 2021-05-24 21:42 | NUR ---
PT ABULATED TO BATHROOM WITHOUT ASSISTANCE
== END 2021-05-24 21:42 | disposition home or self-care (01) ==
LOC: MED 15:30
DX: F10.29 Alcohol dependence with unspecified alcohol-induced disorder (principal); R07.9 Chest pain, unspecified; E11.9 Type 2 diabetes mellitus without complications; I10 Essential (primary) hypertension; Y90.9 Presence of alcohol in blood, level not specified
CPT/HCPCS: 36415; 71045; 80053; 83690; 84484; 85025; 93005; 99285; G0482

== ENCOUNTER 2021-05-25 16:34 | Emergency (ER) | payer MEDICAID, SELFPAY ==
[~2021-05-25] VITALS: Ht 175.3 cm; Wt 68.0 kg
[2021-05-25 16:48] VITALS: BP 111/70
--- NOTE | 2021-05-25 17:45 | NUR ---
PT LYING ON THE GROUND INSIDE THE COVID TENT. SECURITY CALLED FOR ASSISTANCE. PT ASKED TO GET UP OFF THE FLOOR AND SIT IN HIS W/C. PT REFUSING TO GET UP.
--- NOTE | 2021-05-25 17:52 | NUR ---
PATIENT LEFT WITHOUT BEING SEEN BY DR. MCCRACKEN. NO FURTHER CARE PROVIDED FOR PATIENT.
== END 2021-05-25 17:52 | disposition left against medical advice (07) ==
LOC: MED 16:34
DX: R07.9 Chest pain, unspecified (principal); Z53.21 Procedure and treatment not carried out due to patient leaving prior to being seen by health care provider

== ENCOUNTER 2021-07-07 08:49 | Emergency (ER) | payer MEDICAID, SELFPAY ==
[~2021-07-07] VITALS: Ht 167.6 cm; Wt 64.4 kg
--- NOTE | 2021-07-07 09:16 | NUR ---
NO NURSING INTERVENTIONS GIVEN TO PATIENT
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
== END 2021-07-07 09:18 ==
LOC: MED 08:49
DX: F10.129 Alcohol abuse with intoxication, unspecified (principal); R07.9 Chest pain, unspecified; E11.9 Type 2 diabetes mellitus without complications; I10 Essential (primary) hypertension; Z79.899 Other long term (current) drug therapy
CPT/HCPCS: 99283

== ENCOUNTER 2021-07-21 15:23 | Emergency (ER) | payer MEDICAID, SELFPAY ==
[~2021-07-21] VITALS: Ht 154.9 cm; Wt 79.4 kg
[2021-07-21 15:25] VITALS: BP 98/64
--- NOTE | 2021-07-21 15:31 | NUR ---
RAFAEL ONTIVEROS FOR PREBOOK FOR ETOH. BLOOD SUGAR 124 AT THIS TIME. AAOX4. PMH: DM, HTN
[2021-07-21 15:53] VITALS: BP 98/64
== END 2021-07-21 15:51 ==
LOC: MED 15:23
DX: F10.129 Alcohol abuse with intoxication, unspecified (principal); R11.10 Vomiting, unspecified; E11.9 Type 2 diabetes mellitus without complications; I10 Essential (primary) hypertension; Z02.89 Encounter for other administrative examinations; Z79.899 Other long term (current) drug therapy
CPT/HCPCS: 99283

== ENCOUNTER 2021-10-09 06:09 | Emergency (ER) | payer MEDICAID ==
[~2021-10-09] VITALS: Ht 182.9 cm; Wt 79.4 kg
[2021-10-09 06:10] VITALS: BP 124/72
[2021-10-09] MEDS ORDERED: ACETAMINOPHEN EXTRA STRENGTH 500 MG TAB PO ONE (06:45)
[2021-10-09] MEDS ORDERED: NEOMYCIN/POLYMYXIN/BACITRACIN 0.9 GM/1 PKT TP ONE (06:45)
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
[2021-10-09] MEDS ORDERED: ACET-10509 PO (07:28)
[2021-10-09] MEDS ORDERED: LID5T TP (07:28)
[2021-10-09] MEDS ORDERED: LIDOCAINE 5% 1 EA PATCH TP ONE (07:45)
--- NOTE | 2021-10-09 08:47 | NUR ---
NO NURSING CARE GIVEN-Patient discharged with v/s stable. Written and verbal after care instructions given and explained. Patient alert, oriented and verbalized understanding of instructions. Ambulatory with steady gait. All questions addressed prior to discharge. ID band removed. Patient advised to follow up with PMD. Rx TYLENOL, LIDODERM given. Patient educated on indication of medication including possible reaction and side effects. Opportunity to ask questions provided and answered.
[2021-10-09] MEDS ORDERED: LIDOCAINE 5% 1 EA PATCH TP SCH (09:00)
[2021-10-09 09:12] VITALS: BP 124/72
[2021-10-09] MEDS ORDERED: IBUP-2213 PO (22:21)
== END 2021-10-09 09:12 | disposition home or self-care (01) ==
LOC: MED 06:09
DX: S22.41XA Multiple fractures of ribs, right side, initial encounter for closed fracture (principal); E11.9 Type 2 diabetes mellitus without complications; I10 Essential (primary) hypertension; F17.210 Nicotine dependence, cigarettes, uncomplicated; Z71.6 Tobacco abuse counseling; X58.XXXA Exposure to other specified factors, initial encounter; Y93.89 Activity, other specified; Y92.89 Other specified places as the place of occurrence of the external cause; Y99.8 Other external cause status
CPT/HCPCS: 71101; 99284

== ENCOUNTER 2021-10-09 19:53 | Emergency (ER) | payer MEDICAID ==
[~2021-10-09] VITALS: Ht 182.9 cm; Wt 79.4 kg
[~2021-10-09 19:53] MED LIST changes: +ACET-10509 PO; +LID5T TP
[2021-10-09 19:57] VITALS: BP 124/84
[2021-10-09] MEDS ORDERED: IBUP-2213 PO (22:21)
[2021-10-09 23:42] VITALS: BP 132/91
--- NOTE | 2021-10-09 23:42 | NUR ---
d/c with VSS. d/c education given. opportunity to ask questions given and answered. rx of motrin given.
== END 2021-10-09 23:42 | disposition home or self-care (01) ==
LOC: MED 19:53
DX: S20.211A Contusion of right front wall of thorax, initial encounter (principal); E11.9 Type 2 diabetes mellitus without complications; I10 Essential (primary) hypertension; F17.210 Nicotine dependence, cigarettes, uncomplicated; W18.39XA Other fall on same level, initial encounter; Y93.89 Activity, other specified; Y92.89 Other specified places as the place of occurrence of the external cause; Y99.8 Other external cause status
CPT/HCPCS: 71101; 93005; 99283

== ENCOUNTER 2021-10-10 18:03 | Emergency (ER) | payer MEDICAID ==
[~2021-10-10] VITALS: Ht 170.2 cm; Wt 68.0 kg
[~2021-10-10 18:03] MED LIST changes: +IBUP-2213 PO
[2021-10-10 18:19] VITALS: BP 133/87
[2021-10-10] MEDS ORDERED: ONDANSETRON 4 MG/2 ML VIAL IVP ONE (18:55)
[2021-10-10] MEDS ORDERED: NACL 0.9% 1,000 ML IV ONE (18:55)
[2021-10-10 20:11] LABS: BASOPHILS # (AUTO) 0.1 K/uL (0.00-0.22); BASOPHILS % (AUTO) 1.4 % (0.0-2.0); EOSINOPHILS # (AUTO) 0.1 K/uL (0-0.4); EOSINOPHILS % (AUTO) 1.4 % (0.0-4.0); HEMATOCRIT 31.2 % (36-52); HEMOGLOBIN 10.2 g/dL (12.0-18.0); LYMPHOCYTES % (AUTO) 34.9 % (20.5-51.1); MEAN CORPUSCULAR HEMOGLOBIN 28 pg (27-31); MEAN CORPUSCULAR HGB CONC 33 g/dL (33-37); MEAN CORPUSCULAR VOLUME 85.8 fL (80-94); MONOCYTES # (AUTO) 0.6 K/uL (0.8-1.0); MONOCYTES % (AUTO) 10.2 % (1.7-9.3); NEUTROPHILS % (AUTO) 52.1 % (42.2-75.2); PLATELET COUNT (AUTO) 259 K/uL (140-450); RED BLOOD CELL COUNT(AUTO) 3.64 MIL/uL (4.20-6.10); WHITE BLOOD COUNT (AUTO) 5.7 K/uL (4.8-10.8)
[2021-10-10 20:34] LABS: ALBUMIN 3.6 g/dL (3.4-5.0); ANION GAP 13.6 (8-16); CREATININE 0.9 mg/dL (0.6-1.3); POTASSIUM 3.6 mmol/L (3.5-5.1); TOTAL BILIRUBIN 0.5 mg/dL (0.0-1.0)
[2021-10-10] MEDS ORDERED: ONDANSETRON 4 MG/2 ML VIAL ONE (20:34)
[2021-10-10 20:35] LABS: ACETAMINOPHEN < 0.5 ug/ml (10-30); SALICYLATE < 2.8 mg/dL (2.8-20.0)
--- NOTE | 2021-10-10 20:58 | NUR ---
PT IS A 61 Y/O MAN WUTH COMPLAINT OF SYNCOPE. PT IS HOMELESS AND WAS SEEN HERE YESTERAY FOR SIMILAR COMPLAINT AND HAD TO BE ESCORTED OUT. PT STATES THAT HE DRANK FOUR "CUATRO LOCOS" AND HE FELT DIZZY AND PASSED OUT. PT STATES THAT HE HAS BEEN TRYING TO QUIT DRINKING FOR MONTHS AND HAS NOT BEEN ABLE TO STOP. PT STATES THAT HE IS WITHDRAWING. PT STATES THAT HE HATES THE WAY HE FEELS. PT HAS NO VISIBILE BRUISES OR TRAUMA FROM THE FALL. PT HAS BEEN SLEEPING IN BED WITH BOTH SIDE RAILS UP
--- NOTE | 2021-10-10 22:45 | NUR ---
pt d/c but did not want to leave. pt states he wanted 15 more minutes to lay down.
[2021-10-10 23:00] VITALS: BP 147/71
--- NOTE | 2021-10-10 23:00 | NUR ---
pt refused to sign discharge papers but left without intervention. pt provided food and resources.
== END 2021-10-10 23:53 | disposition home or self-care (01) ==
LOC: MED 18:03
DX: S20.20XA Contusion of thorax, unspecified, initial encounter (principal); F10.129 Alcohol abuse with intoxication, unspecified; E11.9 Type 2 diabetes mellitus without complications; I10 Essential (primary) hypertension; F17.210 Nicotine dependence, cigarettes, uncomplicated; Z71.6 Tobacco abuse counseling; Z79.899 Other long term (current) drug therapy; Z98.890 Other specified postprocedural states; X58.XXXA Exposure to other specified factors, initial encounter; Y93.89 Activity, other specified; Y92.89 Other specified places as the place of occurrence of the external cause; Y99.8 Other external cause status
CPT/HCPCS: 36415; 71045; 80053; 83880; 84484; 85025; 93005; 96361; 96374; 99285; G0480; G0482; J2405; J7030

== ENCOUNTER 2021-11-18 20:43 | Emergency (ER) | payer MEDICAID ==
[~2021-11-18] VITALS: Ht 180.3 cm; Wt 79.4 kg
[2021-11-18 20:43] VITALS: BP 118/86
--- NOTE | 2021-11-18 20:43 | NUR ---
TO BED # 07 BIBA FOR SUICIDAL IDEATION, FROM THE [facility] OF [facility]
--- NOTE | 2021-11-18 21:00 | NUR ---
RECEIVED IN BED 7 WITH ORIGINAL C/O SI. PT DENIES SI AT THIS TIME, ADMITS TO ETOH CONSUMPTION. SPEECH IS GARBLED. PT IS POOR HISTORIAN AND IS SLOW TO ANSWER QUESTIONS. PT IS TRANSIENT AND C/O COLD. WARM BLANKETS GIVEN
--- NOTE | 2021-11-18 21:24 | NUR ---
Dr. Lauren at bedside to perform MSE and was asked why he is in ER. pt states " for nothing" repeatedly and yelling at the doctor.
[2021-11-18 21:33] VITALS: BP 118/86
--- NOTE | 2021-11-18 21:33 | NUR ---
PT REFUSING TO SIGN ACI OR AMA. IS REFUSING ANY TREATMENT. ESCORTED BY SECURITY FOR DISCHARGE.
== END 2021-11-18 21:32 | disposition home or self-care (01) ==
LOC: MED 20:43
DX: Z00.00 Encounter for general adult medical examination without abnormal findings (principal); Z76.5 Malingerer [conscious simulation]; E11.9 Type 2 diabetes mellitus without complications; I10 Essential (primary) hypertension; F17.200 Nicotine dependence, unspecified, uncomplicated; Z86.69 Personal history of other diseases of the nervous system and sense organs; Z79.1 Long term (current) use of non-steroidal anti-inflammatories (NSAID); Z79.899 Other long term (current) drug therapy; Z79.2 Long term (current) use of antibiotics
CPT/HCPCS: 99283

== ENCOUNTER 2022-08-09 23:29 | Emergency (ER) | payer MEDICAID ==
[~2022-08-09] VITALS: Ht 167.6 cm; Wt 80.3 kg
[~2022-08-09 23:29] MED LIST changes: -LEVO750T51 PO; +LEVO750T75 PO
--- NOTE | 2022-08-09 23:30 | NUR ---
BIBA TAKEN TO BED #7
[2022-08-09 23:31] VITALS: BP 119/80
[2022-08-10 00:03] VITALS: BP 119/80
--- NOTE | 2022-08-10 01:32 | NUR ---
Exam by Dr. Amaro
[2022-08-10] MEDS ORDERED: chlordiazePOXIDE 25 MG CAP PO STA (01:35)
[2022-08-10 01:50] LABS: PROTHROMBIN TIME 10.4 secs (10.8-13.4)
[2022-08-10 01:52] LABS: ALBUMIN 2.7 g/dL (3.4-5.0); ANION GAP 10.2 (8-16); CARBON DIOXIDE 30.1 mmol/L (21-32); CREATININE 0.7 mg/dL (0.6-1.3); POTASSIUM 3.3 mmol/L (3.5-5.1); TOTAL BILIRUBIN 0.1 mg/dL (0.0-1.0)
[2022-08-10 01:57] LABS: ACETAMINOPHEN < 0.5 ug/ml (10-30); SALICYLATE 3.2 mg/dL (2.8-20.0)
[2022-08-10 02:06] LABS: BASOPHILS # (AUTO) 0.1 K/uL (0.00-0.22); BASOPHILS % (AUTO) 1.5 % (0.0-2.0); EOSINOPHILS # (AUTO) 0.2 K/uL (0-0.4); EOSINOPHILS % (AUTO) 3.1 % (0.0-4.0); HEMATOCRIT 29.2 % (36-52); HEMOGLOBIN 9.4 g/dL (12.0-18.0); LYMPHOCYTES # (AUTO) 2.6 K/uL (2.0-11.5); LYMPHOCYTES % (AUTO) 34.9 % (20.5-51.1); MEAN CORPUSCULAR HEMOGLOBIN 28 pg (27-31); MEAN CORPUSCULAR HGB CONC 32 g/dL (33-37); MONOCYTES # (AUTO) 0.5 K/uL (0.8-1.0); NEUTROPHILS % (AUTO) 53.5 % (42.2-75.2); PLATELET COUNT (AUTO) 471 K/uL (140-450); RED BLOOD CELL COUNT(AUTO) 3.36 MIL/uL (4.20-6.10); RED CELL DISTRIBUTION WIDTH 21.6 % (11.6-13.7); WHITE BLOOD COUNT (AUTO) 7.4 K/uL (4.8-10.8)
[2022-08-10] MEDS ORDERED: POTASSIUM CHLORIDE 20% 40 MEQ/15 ML UDC PO ONE (02:35)
[2022-08-10] MEDS ORDERED: MAGNESIUM OXIDE 400 MG TAB PO ONE (02:35)
[2022-08-10] MEDS ORDERED: ACETAMINOPHEN 325 MG TAB PO ONE (02:55)
[2022-08-10 06:00] VITALS: BP 129/74
== END 2022-08-10 06:00 | disposition home or self-care (01) ==
LOC: MED 23:29
DX: R07.9 Chest pain, unspecified (principal); D64.9 Anemia, unspecified; F10.10 Alcohol abuse, uncomplicated; Y90.9 Presence of alcohol in blood, level not specified
CPT/HCPCS: 36415; 71045; 80053; 83880; 84484; 85025; 85610; 85730; 93005; 99285; G0480; G0482; Q0092

== ENCOUNTER 2022-08-29 18:06 | Emergency (ER) | payer MEDICAID ==
[~2022-08-29] VITALS: Ht 180.3 cm; Wt 79.4 kg
[2022-08-29 18:13] VITALS: BP 143/85
--- NOTE | 2022-08-29 18:35 | NUR ---
S/P EKG INTERPRETATION BY DR. VILLA, PATIENT OKAY TO WAIT IN LOBBY FOR AVAILABLE BED
[2022-08-29] MEDS ORDERED: ACETAMINOPHEN EXTRA STRENGTH 500 MG TAB PO ONE (22:05)
[2022-08-29] MEDS ORDERED: IBUPROFEN 600 MG TAB PO ONE (22:05)
[2022-08-30 01:30] LABS: BASOPHILS # (AUTO) 0.2 K/uL (0.00-0.22); BASOPHILS % (AUTO) 2.6 % (0.0-2.0); EOSINOPHILS # (AUTO) 0.1 K/uL (0-0.4); EOSINOPHILS % (AUTO) 1.8 % (0.0-4.0); HEMATOCRIT 28.4 % (36-52); HEMOGLOBIN 9.1 g/dL (12.0-18.0); LYMPHOCYTES # (AUTO) 3.4 K/uL (2.0-11.5); LYMPHOCYTES % (AUTO) 45.3 % (20.5-51.1); MEAN CORPUSCULAR HEMOGLOBIN 27 pg (27-31); MEAN CORPUSCULAR HGB CONC 32 g/dL (33-37); MEAN CORPUSCULAR VOLUME 85.8 fL (80-94); MONOCYTES # (AUTO) 0.8 K/uL (0.8-1.0); MONOCYTES % (AUTO) 10.8 % (1.7-9.3); NEUTROPHILS # (AUTO) 2.9 K/uL (1.8-7.7); NEUTROPHILS % (AUTO) 39.5 % (42.2-75.2); PLATELET COUNT (AUTO) 607 K/uL (140-450); RED BLOOD CELL COUNT(AUTO) 3.32 MIL/uL (4.20-6.10); RED CELL DISTRIBUTION WIDTH 20.7 % (11.6-13.7); WHITE BLOOD COUNT (AUTO) 7.4 K/uL (4.8-10.8)
[2022-08-30 01:57] LABS: ALBUMIN 3.6 g/dL (3.4-5.0); ANION GAP 13.8 (8-16); ASPARTATE AMINOTRANSFERASE 37 U/L (15-37); CARBON DIOXIDE 30.1 mmol/L (21-32); CHLORIDE 104 mmol/L (98-107); CREATININE 0.9 mg/dL (0.6-1.3); GFR ARICAN-AMERICAN 111 mL/min (>90); GLUCOSE 86 mg/dL (74-106); POTASSIUM 3.9 mmol/L (3.5-5.1); SODIUM SERUM 144 mmol/L (136-145); TOTAL BILIRUBIN 0.3 mg/dL (0.0-1.0); UREA NITROGEN, BLOOD 9 mg/dL (7-18)
--- NOTE | 2022-08-30 02:19 | NUR ---
PATIETN MEDICALLY CLEARED AND REFUSED REPEATED VITALS.
== END 2022-08-29 21:50 | disposition home or self-care (01) ==
LOC: MED 18:06
DX: R07.89 Other chest pain (principal)
CPT/HCPCS: 36415; 71045; 80053; 84484; 85025; 93005; 99285

== ENCOUNTER 2023-09-03 16:25 | Emergency (ER) | payer MEDICAID ==
[~2023-09-03] VITALS: Ht 170.2 cm; Wt 77.1 kg
[2023-09-03 16:27] VITALS: BP 134/75; PULSE 101; RESP 16; TEMP 98.1; O2SAT 94
[2023-09-03] MEDS ORDERED: LORazepam 2 MG/ML VIAL IM ONE (17:15)
[2023-09-03] MEDS ORDERED: cephALEXin 500 MG CAP PO ONE (17:15)
[2023-09-03] MEDS ORDERED: ACETAMINOPHEN EXTRA STRENGTH 500 MG TAB PO ONE (17:15)
[2023-09-03] MEDS ORDERED: cephALEXin 500 MG CAP ONE (18:20)
[2023-09-03] MEDS ORDERED: ACETAMINOPHEN EXTRA STRENGTH 500 MG TAB ONE (18:20)
[2023-09-03] MEDS ORDERED: LORazepam 2 MG/ML VIAL ONE (18:22)
[2023-09-03] MEDS ORDERED: CEPH-588 PO (20:06)
== END 2023-09-03 20:42 | disposition home or self-care (01) ==
LOC: MED 16:25
DX: L03.115 Cellulitis of right lower limb (principal); F10.129 Alcohol abuse with intoxication, unspecified; Z86.69 Personal history of other diseases of the nervous system and sense organs; Z79.2 Long term (current) use of antibiotics; Z79.1 Long term (current) use of non-steroidal anti-inflammatories (NSAID); Z79.899 Other long term (current) drug therapy; Y90.9 Presence of alcohol in blood, level not specified
CPT/HCPCS: 73562; 96372; 99283; J2060

== ENCOUNTER 2023-10-19 17:32 | Emergency (ER) | payer MEDICAID, OTHER ==
[~2023-10-19] VITALS: Ht 170.2 cm; Wt 77.1 kg
[~2023-10-19 17:32] MED LIST changes: +CEPH-588 PO; +NAPR-54 PO
[2023-10-19 17:36] VITALS: BP 123/68; PULSE 90; RESP 16; TEMP 98.7; O2SAT 100
[2023-10-19] MEDS ORDERED: ONDANSETRON 4 MG/2 ML VIAL IVP ONE (18:35)
[2023-10-19] MEDS ORDERED: NACL 0.9% 500 ML IV ONE (18:35)
[2023-10-19 19:25] LABS: BASOPHILS # (AUTO) 0.1 K/uL (0.00-0.22); BASOPHILS % (AUTO) 0.8 % (0.0-2.0); EOSINOPHILS # (AUTO) 0.2 K/uL (0-0.4); EOSINOPHILS % (AUTO) 2.8 % (0.0-4.0); HEMATOCRIT 31.5 % (36-52); HEMOGLOBIN 10.4 g/dL (12.0-18.0); LYMPHOCYTES # (AUTO) 1.8 K/uL (2.0-11.5); LYMPHOCYTES % (AUTO) 29.2 % (20.5-51.1); MEAN CORPUSCULAR HEMOGLOBIN 30 pg (27-31); MEAN CORPUSCULAR HGB CONC 33 g/dL (33-37); MEAN CORPUSCULAR VOLUME 89.9 fL (80-94); MONOCYTES # (AUTO) 0.5 K/uL (0.8-1.0); MONOCYTES % (AUTO) 8.6 % (1.7-9.3); NEUTROPHILS # (AUTO) 3.5 K/uL (1.8-7.7); NEUTROPHILS % (AUTO) 58.6 % (42.2-75.2); PLATELET COUNT (AUTO) 254 K/uL (140-450); RED BLOOD CELL COUNT(AUTO) 3.51 MIL/uL (4.20-6.10); RED CELL DISTRIBUTION WIDTH 18.5 % (11.6-13.7); WHITE BLOOD COUNT (AUTO) 6.1 K/uL (4.8-10.8)
[2023-10-19] MEDS ORDERED: ACETAMINOPHEN EXTRA STRENGTH 500 MG TAB ONE (19:34)
[2023-10-19] MEDS ORDERED: ONDANSETRON 4 MG/2 ML VIAL ONE (19:37)
[2023-10-19] MEDS ORDERED: ONDANSETRON 4 MG/2 ML VIAL IM ONE (19:45)
[2023-10-19] MEDS ORDERED: ACETAMINOPHEN EXTRA STRENGTH 500 MG TAB PO ONE (19:45)
[2023-10-19 19:46] LABS: ANION GAP 13.5 (8-16); CALCIUM 8.1 mg/dL (8.5-10.1); CARBON DIOXIDE 30.1 mmol/L (21-32); CREATININE 0.7 mg/dL (0.6-1.3); POTASSIUM 3.6 mmol/L (3.5-5.1); TOTAL BILIRUBIN 0.1 mg/dL (0.0-1.0); TOTAL PROTEIN, SERUM 8.5 g/dL (6.4-8.2)
[2023-10-19 20:31] LABS: FLU A ANTIGEN negative (NEGATIVE); FLU B ANTIGEN NEGATIVE (NEGATIVE)
[2023-10-19 22:32] LABS: APPEARANCE,URINE CLEAR (CLEAR); BILIRUBIN,URINE NEGATIVE (NEGATIVE); BLOOD, URINE TRACE-I (NEGATIVE); COLOR,URINE YELLOW (YELLOW); LEUKOCYTE ESTERASE ,URINE NEGATIVE (NEGATIVE); NITRITE, URINE NEGATIVE (NEGATIVE); PROTEIN,URINE NEGATIVE (NEGATIVE); UGLUCOSE NEGATIVE (NEGATIVE); UROBILINOGEN,URINE 0.2 EU/dL (0.2 - 1)
[2023-10-19 22:56] LABS: AMPHETAMINE, URINE NEGATIVE ng/ml (NEG <=1000); BARBITURATE, URINE NEGATIVE ng/ml (NEG <=200); BENZODIAZEPINE, URINE NEGATIVE ng/mL (NEG <=200); CANNABINOID, URINE NEGATIVE ng/mL (NEG <=50); COCAINE, URINE NEGATIVE ng/mL (NEG <=300); OPIATE, URINE NEGATIVE ng/mL (NEG <=2000); PHENCYCLIDINE SCREEN,URINE NEGATIVE ng/mL (NEG <=25)
[2023-10-19 23:43] LABS: RBC,URINE NONE SEEN /HPF (0-5); WBC,URINE NONE SEEN /HPF (0-5)
[2023-10-19 23:44] LABS: BACTERIA,URINE FEW /HPF (None Seen); SQUAMOUS EPITHELIAL CELL,UR 0-3 (FEW) /LPF (0-3 (FEW))
[2023-10-20 05:03] VITALS: BP 104/61; PULSE 86; RESP 15; TEMP 98.7; O2SAT 95
== END 2023-10-20 05:55 | disposition home or self-care (01) ==
LOC: MED 17:32
DX: F10.129 Alcohol abuse with intoxication, unspecified (principal); Z20.822 Contact with and (suspected) exposure to COVID-19; Z86.69 Personal history of other diseases of the nervous system and sense organs; Z79.899 Other long term (current) drug therapy; Z79.2 Long term (current) use of antibiotics; Z79.1 Long term (current) use of non-steroidal anti-inflammatories (NSAID); Y90.8 Blood alcohol level of 240 mg/100 ml or more
CPT/HCPCS: 36415; 71045; 80053; 80305; 81001; 83690; 85025; 87426; 87804; 96372; 99284; G0482; J2405; Q0092

== ENCOUNTER 2023-10-21 13:28 | Inpatient (IN) | payer OTHER ==
[~2023-10-21] VITALS: Ht 182.9 cm; Wt 79.4 kg
[~2023-10-21 13:28] MED LIST changes: +CHLO-836 PO; -LIB25 PO
[2023-10-21 13:37] VITALS: BP 124/83; PULSE 115; RESP 20; TEMP 98.2; O2SAT 96
[2023-10-21 17:16] LABS: BASOPHILS # (AUTO) 0.1 K/uL (0.00-0.22); BASOPHILS % (AUTO) 1.2 % (0.0-2.0); EOSINOPHILS % (AUTO) 0.2 % (0.0-4.0); HEMATOCRIT 32.7 % (36-52); HEMOGLOBIN 10.7 g/dL (12.0-18.0); LYMPHOCYTES # (AUTO) 0.9 K/uL (2.0-11.5); MEAN CORPUSCULAR HEMOGLOBIN 29 pg (27-31); MEAN CORPUSCULAR HGB CONC 33 g/dL (33-37); MEAN CORPUSCULAR VOLUME 89.1 fL (80-94); MONOCYTES # (AUTO) 0.9 K/uL (0.8-1.0); MONOCYTES % (AUTO) 8.1 % (1.7-9.3); NEUTROPHILS # (AUTO) 8.6 K/uL (1.8-7.7); NEUTROPHILS % (AUTO) 81.5 % (42.2-75.2); PLATELET COUNT (AUTO) 240 K/uL (140-450); RED BLOOD CELL COUNT(AUTO) 3.67 MIL/uL (4.20-6.10); RED CELL DISTRIBUTION WIDTH 18.2 % (11.6-13.7); WHITE BLOOD COUNT (AUTO) 10.5 K/uL (4.8-10.8)
[2023-10-21 17:33] LABS: CARBON DIOXIDE 30.1 mmol/L (21-32); POTASSIUM 4.1 mmol/L (3.5-5.1)
[2023-10-21 17:39] LABS: ALBUMIN 3.4 g/dL (3.4-5.0); BILIRUBIN,DIRECT 0.2 mg/dL (0.0-0.3); TOTAL BILIRUBIN 0.7 mg/dL (0.0-1.0); TOTAL PROTEIN, SERUM 9.4 g/dL (6.4-8.2)
[2023-10-21] MEDS: NACL 0.9% 1,000 ML IV SCH (19:55)
[2023-10-21] MEDS: ONDANSETRON 4 MG/2 ML VIAL IVP ONE (19:55)
[2023-10-21] MEDS: KETOROLAC 30 MG/ML VIAL IVP ONE (19:56)
[2023-10-21] MEDS: LORazepam 2 MG/ML VIAL IVP ONE (19:57)
[2023-10-21] MEDS ORDERED: KETOROLAC 30 MG/ML VIAL ONE (19:57)
[2023-10-21] MEDS ORDERED: LORazepam 2 MG/ML VIAL ONE (19:58)
[2023-10-21] MEDS ORDERED: ONDANSETRON 4 MG/2 ML VIAL ONE (19:59)
[2023-10-21] MEDS: chlordiazePOXIDE 25 MG CAP PO SCH (22:30)
[2023-10-21] MEDS: FOLIC ACID 1 MG TAB PO SCH (22:30)
[2023-10-21] MEDS: DEXT 5% / NACL 0.45% 1,000 ML IV SCH (23:20)
[2023-10-21] MEDS: THIAMINE 200 MG/2 ML VIAL IV SCH (23:20)
[2023-10-22 02:52] VITALS: O2SAT 97
[2023-10-22] MEDS: HYDROcodone/APAP 5/325 MG 1 TAB TAB PO PRN (06:08)
[2023-10-22] MEDS ORDERED: LORazepam 2 MG/ML VIAL IVP PRN ×2 (06:20→12:00)
[2023-10-22 06:49] VITALS: O2SAT 98
[2023-10-22 06:51] LABS: BASOPHILS # (AUTO) 0.1 K/uL (0.00-0.22); BASOPHILS % (AUTO) 1.8 % (0.0-2.0); EOSINOPHILS # (AUTO) 0.3 K/uL (0-0.4); EOSINOPHILS % (AUTO) 4.2 % (0.0-4.0); HEMATOCRIT 31.8 % (36-52); HEMOGLOBIN 10.3 g/dL (12.0-18.0); LYMPHOCYTES # (AUTO) 1.8 K/uL (2.0-11.5); LYMPHOCYTES % (AUTO) 24.4 % (20.5-51.1); MEAN CORPUSCULAR HEMOGLOBIN 29 pg (27-31); MEAN CORPUSCULAR HGB CONC 33 g/dL (33-37); MEAN CORPUSCULAR VOLUME 90.6 fL (80-94); MONOCYTES # (AUTO) 0.8 K/uL (0.8-1.0); MONOCYTES % (AUTO) 10.3 % (1.7-9.3); NEUTROPHILS # (AUTO) 4.4 K/uL (1.8-7.7); NEUTROPHILS % (AUTO) 59.3 % (42.2-75.2); PLATELET COUNT (AUTO) 160 K/uL (140-450); RED BLOOD CELL COUNT(AUTO) 3.51 MIL/uL (4.20-6.10); WHITE BLOOD COUNT (AUTO) 7.5 K/uL (4.8-10.8)
[2023-10-22 07:02] LABS: ALBUMIN 2.9 g/dL (3.4-5.0); ANION GAP 11.5 (8-16); CALCIUM 8.3 mg/dL (8.5-10.1); CARBON DIOXIDE 26.4 mmol/L (21-32); CREATININE 0.9 mg/dL (0.6-1.3); POTASSIUM 3.9 mmol/L (3.5-5.1); TOTAL BILIRUBIN 0.6 mg/dL (0.0-1.0); TOTAL PROTEIN, SERUM 8.2 g/dL (6.4-8.2)
[2023-10-22] MEDS: MORPHINE SULFATE 4 MG/ML SYR IVP PRN (08:25)
[2023-10-22] MEDS: ENOXAPARIN 40 MG/0.4 ML SYR SUBQ SCH (09:45)
[2023-10-22] MEDS: THIAMINE 200 MG/2 ML VIAL IV SCH (12:44)
[2023-10-22] MEDS: LORazepam 2 MG/ML VIAL IVP PRN (14:10)
[2023-10-22 20:30] VITALS: PULSE 100; RESP 19; O2SAT 96
[2023-10-22 20:45] VITALS: PULSE 96
[2023-10-23] VITALS (7 sets, daily range): BP systolic 119–150; BP diastolic 70–96; PULSE 80–97; RESP 18; TEMP 97–98.9; O2SAT 96–100
[2023-10-23] MEDS: ACETAMINOPHEN 325 MG TAB PO PRN (09:31)
[2023-10-23 10:51] LABS: BARBITURATE, URINE NEGATIVE ng/ml (NEG <=200); BENZODIAZEPINE, URINE POSITIVE ng/mL (NEG <=200); OPIATE, URINE POSITIVE ng/mL (NEG <=2000)
[2023-10-23 10:52] LABS: AMPHETAMINE, URINE NEGATIVE ng/ml (NEG <=1000); CANNABINOID, URINE NEGATIVE ng/mL (NEG <=50); COCAINE, URINE NEGATIVE ng/mL (NEG <=300); PHENCYCLIDINE SCREEN,URINE NEGATIVE ng/mL (NEG <=25)
[2023-10-24] VITALS: BP 147/89; PULSE 82; PULSE 83; RESP 18; TEMP 97.1; O2SAT 100
[2023-10-24 04:00] VITALS: BP 130/82; PULSE 77; PULSE 88; RESP 18; TEMP 97; O2SAT 95
[2023-10-24 07:09] LABS: BASOPHILS % (AUTO) 0.8 % (0.0-2.0); EOSINOPHILS # (AUTO) 0.3 K/uL (0-0.4); EOSINOPHILS % (AUTO) 6.8 % (0.0-4.0); HEMATOCRIT 30.2 % (36-52); LYMPHOCYTES # (AUTO) 1.2 K/uL (2.0-11.5); LYMPHOCYTES % (AUTO) 27.1 % (20.5-51.1); MEAN CORPUSCULAR HEMOGLOBIN 30 pg (27-31); MEAN CORPUSCULAR HGB CONC 33 g/dL (33-37); MONOCYTES # (AUTO) 0.6 K/uL (0.8-1.0); MONOCYTES % (AUTO) 14.9 % (1.7-9.3); NEUTROPHILS # (AUTO) 2.2 K/uL (1.8-7.7); NEUTROPHILS % (AUTO) 50.4 % (42.2-75.2); PLATELET COUNT (AUTO) 217 K/uL (140-450); RED BLOOD CELL COUNT(AUTO) 3.36 MIL/uL (4.20-6.10); RED CELL DISTRIBUTION WIDTH 18.4 % (11.6-13.7); WHITE BLOOD COUNT (AUTO) 4.3 K/uL (4.8-10.8)
[2023-10-24 07:30] LABS: ALBUMIN 2.8 g/dL (3.4-5.0); ANION GAP 10.3 (8-16); CALCIUM 8.5 mg/dL (8.5-10.1); CARBON DIOXIDE 29.4 mmol/L (21-32); CREATININE 0.8 mg/dL (0.6-1.3); POTASSIUM 3.7 mmol/L (3.5-5.1); TOTAL BILIRUBIN 0.3 mg/dL (0.0-1.0)
[2023-10-24 08:00] VITALS: BP 129/73; PULSE 80; PULSE 89; RESP 18; TEMP 98.7; O2SAT 99
[2023-10-24] MEDS ORDERED: LORazepam 2 MG/ML VIAL IVP PRN (10:49)
[2023-10-24 12:00] VITALS: BP 126/79; PULSE 91; RESP 18; TEMP 98.2; O2SAT 97
[2023-10-24] MEDS ORDERED: GABA300C PO (13:17)
[2023-10-24] MEDS ORDERED: ESCI5TAB PO (13:17)
== END 2023-10-24 13:55 | disposition home or self-care (01) | DRG 254 ==
LOC: MED 13:28 → MTU 20:58
PROVIDERS: ADMIT Family Medicine; ATTEND Family Medicine
PROC: 02HV33Z Insertion of Infusion Device into Superior Vena Cava, Percutaneous Approach (ICD-10-PCS; principal; 2023-10-21)
PROC: B548ZZA Ultrasonography of Superior Vena Cava, Guidance (ICD-10-PCS; 2023-10-21)
DX: K59.00 Constipation, unspecified (principal); R65.10 Systemic inflammatory response syndrome (SIRS) of non-infectious origin without acute organ dysfunction; E44.0 Moderate protein-calorie malnutrition; E87.1 Hypo-osmolality and hyponatremia; F10.239 Alcohol dependence with withdrawal, unspecified; Z68.23 Body mass index [BMI] 23.0-23.9, adult; R74.01 Elevation of levels of liver transaminase levels
CPT/HCPCS: 36415; 71045; 80048; 80053; 80076; 80305; 83036; 83690; 85025; 87081; 93005; 93971; 96361; 96374; 96375; 97112; 97116; 97163-GP; 97530; 99285; G0482; J1650; J1885; J2060; J2270; J2405; J3411; Q0092

== ENCOUNTER 2023-10-24 21:52 | Emergency (ER) | payer OTHER ==
[~2023-10-24] VITALS: Ht 170.2 cm; Wt 72.6 kg
[~2023-10-24 21:52] MED LIST changes: +ESCI5TAB PO; +GABA300C PO
[2023-10-24 21:55] VITALS: BP 98/53; PULSE 105; RESP 19; TEMP 97.8; O2SAT 100
[2023-10-24] MEDS ORDERED: ACETAMINOPHEN EXTRA STRENGTH 500 MG TAB PO ONE (23:20)
[2023-10-24] MEDS ORDERED: LORazepam 1 MG TAB PO ONE (23:20)
[2023-10-24 23:35] VITALS: BP 110/60; PULSE 90; RESP 16; TEMP 97.8; O2SAT 100
== END 2023-10-24 23:35 | disposition home or self-care (01) ==
LOC: MED 21:52
DX: F10.10 Alcohol abuse, uncomplicated (principal); Z86.69 Personal history of other diseases of the nervous system and sense organs; Z79.899 Other long term (current) drug therapy; Y90.9 Presence of alcohol in blood, level not specified
CPT/HCPCS: 99283

== ENCOUNTER 2023-11-01 08:51 | Emergency (ER) | payer OTHER ==
[~2023-11-01] VITALS: Ht 180.3 cm; Wt 70.3 kg
[~2023-11-01 08:51] MED LIST changes: -ACET-10509 PO; -CEPH-588 PO; -CHLO-836 PO; -CLIN300C2 PO; -IBUP-2213 PO; -LEVO750T75 PO; -LID5T TP; -MULT-2253 PO; -NAPR-54 PO; -OMEP-278 PO
[2023-11-01 08:52] VITALS: BP 128/75; PULSE 73; RESP 16; TEMP 98.6; O2SAT 98
[2023-11-01 09:33] LABS: BASOPHILS # (AUTO) 0.1 K/uL (0.00-0.22); BASOPHILS % (AUTO) 1.7 % (0.0-2.0); EOSINOPHILS # (AUTO) 0.2 K/uL (0-0.4); EOSINOPHILS % (AUTO) 2.6 % (0.0-4.0); LYMPHOCYTES # (AUTO) 1.5 K/uL (2.0-11.5); LYMPHOCYTES % (AUTO) 18.9 % (20.5-51.1); MEAN CORPUSCULAR HEMOGLOBIN 29 pg (27-31); MEAN CORPUSCULAR HGB CONC 32 g/dL (33-37); MEAN CORPUSCULAR VOLUME 88.5 fL (80-94); MONOCYTES # (AUTO) 0.6 K/uL (0.8-1.0); MONOCYTES % (AUTO) 7.9 % (1.7-9.3); NEUTROPHILS # (AUTO) 5.4 K/uL (1.8-7.7); NEUTROPHILS % (AUTO) 68.9 % (42.2-75.2); PLATELET COUNT (AUTO) 431 K/uL (140-450); RED BLOOD CELL COUNT(AUTO) 3.51 MIL/uL (4.20-6.10); WHITE BLOOD COUNT (AUTO) 7.8 K/uL (4.8-10.8)
[2023-11-01 09:42] LABS: ANION GAP 13.7 (8-16); CALCIUM 8.4 mg/dL (8.5-10.1); CARBON DIOXIDE 28.5 mmol/L (21-32); CREATININE 0.8 mg/dL (0.6-1.3); POTASSIUM 4.2 mmol/L (3.5-5.1)
[2023-11-01 09:48] LABS: ALBUMIN 3.5 g/dL (3.4-5.0); BILIRUBIN,DIRECT 0.1 mg/dL (0.0-0.3); TOTAL BILIRUBIN 0.2 mg/dL (0.0-1.0); TOTAL PROTEIN, SERUM 9.3 g/dL (6.4-8.2)
== END 2023-11-01 12:36 | disposition left against medical advice (07) ==
LOC: MED 08:51
DX: R10.13 Epigastric pain (principal); Z53.21 Procedure and treatment not carried out due to patient leaving prior to being seen by health care provider
CPT/HCPCS: 36415; 80048; 80076; 83690; 85025; 99281

== ENCOUNTER 2023-11-01 17:45 | Emergency (ER) | payer OTHER ==
[~2023-11-01] VITALS: Ht 185.4 cm; Wt 72.6 kg
[2023-11-01 17:46] VITALS: BP 129/78; PULSE 90; RESP 16; TEMP 97.5; O2SAT 98
[2023-11-01] MEDS ORDERED: diazePAM 5 MG TAB PO ONE (18:50)
[2023-11-01 19:39] VITALS: BP 129/78; PULSE 90; RESP 16; TEMP 97.5; O2SAT 98
== END 2023-11-01 19:39 | disposition home or self-care (01) ==
LOC: MED 17:45
DX: F10.10 Alcohol abuse, uncomplicated (principal); Z86.69 Personal history of other diseases of the nervous system and sense organs; Z79.899 Other long term (current) drug therapy; Y90.9 Presence of alcohol in blood, level not specified
CPT/HCPCS: 99283

== ENCOUNTER 2023-11-05 19:38 | Emergency (ER) | payer OTHER ==
[~2023-11-05] VITALS: Ht 185.4 cm; Wt 72.6 kg
[2023-11-05 19:47] VITALS: BP 137/60; PULSE 100; RESP 18; TEMP 98.3; O2SAT 98
[2023-11-05] MEDS ORDERED: ACETAMINOPHEN EXTRA STRENGTH 500 MG TAB PO ONE (20:50)
[2023-11-05] MEDS ORDERED: DIPH25SG5 PO (20:50)
== END 2023-11-05 21:04 | disposition home or self-care (01) ==
LOC: MED 19:38
DX: G47.00 Insomnia, unspecified (principal); Z86.69 Personal history of other diseases of the nervous system and sense organs; Z79.899 Other long term (current) drug therapy
CPT/HCPCS: 99283

== ENCOUNTER 2023-11-06 17:20 | Emergency (ER) | payer OTHER ==
[~2023-11-06] VITALS: Ht 175.3 cm; Wt 81.6 kg
[~2023-11-06 17:20] MED LIST changes: +DIPH25SG5 PO
[2023-11-06 17:26] VITALS: BP 147/85; PULSE 110; RESP 20; TEMP 98.1; O2SAT 98
[2023-11-06] MEDS ORDERED: SODIUM CHLORIDE FLUSH 10 ML SYR IVF ONE (21:55)
[2023-11-06] MEDS ORDERED: NACL 0.9% 1,000 ML IV ONE (21:55)
[2023-11-06] MEDS: LORazepam 2 MG/ML VIAL IM ONE (22:49)
[2023-11-07 05:20] VITALS: BP 147/85; PULSE 98; RESP 20; TEMP 98.1; O2SAT 98
== END 2023-11-07 05:20 | disposition home or self-care (01) ==
LOC: MED 17:20
DX: S00.81XA Abrasion of other part of head, initial encounter (principal); F10.129 Alcohol abuse with intoxication, unspecified; R07.9 Chest pain, unspecified; Z86.69 Personal history of other diseases of the nervous system and sense organs; Z79.899 Other long term (current) drug therapy; Y90.9 Presence of alcohol in blood, level not specified; W01.198A Fall on same level from slipping, tripping and stumbling with subsequent striking against other object, initial encounter; Y92.89 Other specified places as the place of occurrence of the external cause; Y93.89 Activity, other specified; Y99.8 Other external cause status
CPT/HCPCS: 70450; 71045; 72125; 93005; 96372; 99285; J2060; Q0092

== ENCOUNTER 2023-11-07 16:47 | Emergency (ER) | payer OTHER ==
[~2023-11-07] VITALS: Ht 182.9 cm; Wt 79.4 kg
[2023-11-07 17:18] VITALS: BP 146/66; PULSE 105; RESP 18; TEMP 98.2; O2SAT 98
[2023-11-07 18:00] VITALS: BP 146/66; PULSE 105; RESP 18; TEMP 98.2; O2SAT 98
[2023-11-07 19:37] LABS: BASOPHILS # (AUTO) 0.1 K/uL (0.00-0.22); BASOPHILS % (AUTO) 2.1 % (0.0-2.0); EOSINOPHILS # (AUTO) 0.4 K/uL (0-0.4); EOSINOPHILS % (AUTO) 6.6 % (0.0-4.0); HEMATOCRIT 28.4 % (36-52); HEMOGLOBIN 9.3 g/dL (12.0-18.0); LYMPHOCYTES # (AUTO) 2.4 K/uL (2.0-11.5); LYMPHOCYTES % (AUTO) 40.7 % (20.5-51.1); MEAN CORPUSCULAR HEMOGLOBIN 29 pg (27-31); MEAN CORPUSCULAR HGB CONC 33 g/dL (33-37); MEAN CORPUSCULAR VOLUME 87.5 fL (80-94); MONOCYTES # (AUTO) 0.6 K/uL (0.8-1.0); MONOCYTES % (AUTO) 9.4 % (1.7-9.3); NEUTROPHILS # (AUTO) 2.4 K/uL (1.8-7.7); NEUTROPHILS % (AUTO) 41.2 % (42.2-75.2); PLATELET COUNT (AUTO) 309 K/uL (140-450); RED BLOOD CELL COUNT(AUTO) 3.25 MIL/uL (4.20-6.10); RED CELL DISTRIBUTION WIDTH 19.2 % (11.6-13.7); WHITE BLOOD COUNT (AUTO) 5.9 K/uL (4.8-10.8)
[2023-11-07 19:47] LABS: ALANINE AMINOTRANSFERASE 23 U/L (12-78); ALBUMIN 3.1 g/dL (3.4-5.0); ALCOHOL, BLOOD 295 mg/dL (<10); ALKALINE PHOSPHATASE 72 U/L (50-136); ASPARTATE AMINOTRANSFERASE 36 U/L (15-37); BILIRUBIN,DIRECT 0.1 mg/dL (0.0-0.3); TOTAL BILIRUBIN 0.1 mg/dL (0.0-1.0); TOTAL PROTEIN, SERUM 8.5 g/dL (6.4-8.2)
[2023-11-07 19:48] LABS: ANION GAP 12.6 (8-16); CALCIUM 8.4 mg/dL (8.5-10.1); CARBON DIOXIDE 30.1 mmol/L (21-32); POTASSIUM 3.7 mmol/L (3.5-5.1)
[2023-11-07 19:51] LABS: ACETAMINOPHEN < 0.5 ug/ml (10-30); SALICYLATE < 2.8 mg/dL (2.8-20.0)
[2023-11-07 20:23] LABS: AMPHETAMINE, URINE NEGATIVE ng/ml (NEG <=1000); BARBITURATE, URINE NEGATIVE ng/ml (NEG <=200); BENZODIAZEPINE, URINE POSITIVE ng/mL (NEG <=200); CANNABINOID, URINE NEGATIVE ng/mL (NEG <=50); COCAINE, URINE NEGATIVE ng/mL (NEG <=300); OPIATE, URINE NEGATIVE ng/mL (NEG <=2000); PHENCYCLIDINE SCREEN,URINE NEGATIVE ng/mL (NEG <=25)
[2023-11-07] MEDS: NACL 0.9% 1,500 ML IV ONE (20:56)
== END 2023-11-07 23:03 | disposition home or self-care (01) ==
LOC: MED 16:47
DX: S09.90XA Unspecified injury of head, initial encounter (principal); R45.851 Suicidal ideations; F10.129 Alcohol abuse with intoxication, unspecified; R45.850 Homicidal ideations; Z20.822 Contact with and (suspected) exposure to COVID-19; F17.210 Nicotine dependence, cigarettes, uncomplicated; Z86.69 Personal history of other diseases of the nervous system and sense organs; Z79.899 Other long term (current) drug therapy; X58.XXXA Exposure to other specified factors, initial encounter; Y92.89 Other specified places as the place of occurrence of the external cause; Y93.89 Activity, other specified; Y99.8 Other external cause status
CPT/HCPCS: 36415; 80048; 80076; 80305; 85025; 87426; 96360; 99285; G0480; G0482; J7030

== ENCOUNTER 2023-11-08 16:14 | Emergency (ER) | payer OTHER ==
[~2023-11-08] VITALS: Ht 182.9 cm; Wt 79.4 kg
[2023-11-08 16:23] VITALS: BP 138/76; PULSE 98; RESP 16; TEMP 98.4; O2SAT 97
== END 2023-11-08 18:00 | disposition left against medical advice (07) ==
LOC: MED 16:14
DX: F10.129 Alcohol abuse with intoxication, unspecified (principal); Z86.69 Personal history of other diseases of the nervous system and sense organs; Z79.899 Other long term (current) drug therapy; Y90.9 Presence of alcohol in blood, level not specified
CPT/HCPCS: 99283

== ENCOUNTER 2023-11-09 17:13 | Emergency (ER) | payer OTHER ==
[~2023-11-09] VITALS: Ht 182.9 cm; Wt 79.4 kg
[2023-11-09 17:29] VITALS: BP 118/74; PULSE 112; RESP 20; TEMP 98.2; O2SAT 98
== END 2023-11-09 21:30 | disposition home or self-care (01) ==
LOC: MED 17:13
DX: F10.129 Alcohol abuse with intoxication, unspecified (principal); Y90.9 Presence of alcohol in blood, level not specified
CPT/HCPCS: 99283

== ENCOUNTER 2023-11-10 19:31 | Emergency (ER) | payer OTHER ==
[~2023-11-10] VITALS: Ht 180.3 cm; Wt 79.4 kg
[2023-11-10] MEDS: MAG SULF 2000 MG/WATER PREMIX 50 ML IV ONE (19:55)
[2023-11-10 19:57] VITALS: BP 124/80; PULSE 94; RESP 20; TEMP 97.6; O2SAT 99
[2023-11-10] MEDS ORDERED: MULTIVITAMIN-12 10 ML in NACL 0.9% 1,000 ML IV ONE (20:00)
[2023-11-10] MEDS: FOLIC ACID 5 MG/ML SYR IM ONE (20:21)
[2023-11-10] MEDS: THIAMINE 200 MG/2 ML VIAL IM ONE (20:21)
[2023-11-10 22:35] LABS: BASOPHILS # (AUTO) 0.1 K/uL (0.00-0.22); BASOPHILS % (AUTO) 1.8 % (0.0-2.0); EOSINOPHILS # (AUTO) 0.2 K/uL (0-0.4); EOSINOPHILS % (AUTO) 5.1 % (0.0-4.0); HEMATOCRIT 32.7 % (36-52); HEMOGLOBIN 10.4 g/dL (12.0-18.0); LYMPHOCYTES # (AUTO) 2.1 K/uL (2.0-11.5); LYMPHOCYTES % (AUTO) 46.8 % (20.5-51.1); MEAN CORPUSCULAR HEMOGLOBIN 28 pg (27-31); MEAN CORPUSCULAR HGB CONC 32 g/dL (33-37); MEAN CORPUSCULAR VOLUME 87.9 fL (80-94); MONOCYTES # (AUTO) 0.4 K/uL (0.8-1.0); MONOCYTES % (AUTO) 8.4 % (1.7-9.3); NEUTROPHILS # (AUTO) 1.7 K/uL (1.8-7.7); NEUTROPHILS % (AUTO) 37.9 % (42.2-75.2); PLATELET COUNT (AUTO) 272 K/uL (140-450); RED BLOOD CELL COUNT(AUTO) 3.72 MIL/uL (4.20-6.10); WHITE BLOOD COUNT (AUTO) 4.6 K/uL (4.8-10.8)
[2023-11-10 22:39] LABS: ANION GAP 15.5 (8-16); CALCIUM 8.5 mg/dL (8.5-10.1); CARBON DIOXIDE 31.1 mmol/L (21-32); CREATININE 0.9 mg/dL (0.6-1.3); POTASSIUM 3.6 mmol/L (3.5-5.1)
== END 2023-11-11 00:21 | disposition home or self-care (01) ==
LOC: MED 19:31
DX: F10.129 Alcohol abuse with intoxication, unspecified (principal); Z86.69 Personal history of other diseases of the nervous system and sense organs; Z79.899 Other long term (current) drug therapy
CPT/HCPCS: 36415; 80048; 85025; 96365; 96366; 96372; 99284; G0482; J3411; J3475; J3490

== ENCOUNTER 2023-11-23 22:58 | Emergency (ER) | payer OTHER ==
[~2023-11-23] VITALS: Ht 177.8 cm; Wt 74.8 kg
[2023-11-23 23:21] VITALS: BP 148/83; PULSE 84; RESP 16; TEMP 97.2; O2SAT 97
== END 2023-11-24 04:59 | disposition left against medical advice (07) ==
LOC: MED 22:58
DX: F10.129 Alcohol abuse with intoxication, unspecified (principal); Z53.21 Procedure and treatment not carried out due to patient leaving prior to being seen by health care provider
CPT/HCPCS: 99281